=== PATIENT | male | born 1935 | race Caucasian/White ===

== ENCOUNTER 2019-01-23 16:12 | Emergency (ER) | payer OTHER, MEDICARE ==
--- OUTSIDE RECORDS SUMMARY | 2019-01-23 16:14 | XMS REPORT | Clinical Summary ---
:1935 Author Organization [facility] Address [address] [place] [address] Care Team Providers Name Role Phone Katharine Rascon MD Primary Care Provider Allergies Active Allergy Reactions Severity Noted Date Comments No Known Drug Allergies 03/08/2016 Medications Medication Sig Dispensed Refills Start Date End Date Status finasteride Take 5 mg by 0 11/04/2017 Active (PROSCAR) 5 mg mouth daily. tablet levothyroxine TAKE 1 TABLET 0 12/09/2017 Active (SYNTHROID, BY MOUTH ONCE LEVOXYL) 112 mcg DAILY FOR 90 tablet DAYS NIFEdipine CC TAKE 1 TABLET 0 10/24/2017 Active (ADALAT CC) 90 MG BY MOUTH ONCE A 24 hr tablet DAY FOR 90 DAYS pravastatin TAKE 1 TABLET 0 10/22/2017 Active (PRAVACHOL) 40 MG BY MOUTH ONCE A tablet DAY AT BEDTIME FOR 90 DAYS ALPRAZolam (XANAX) Take 0.25 mg by 0 10/16/2017 Active 0.25 MG tablet mouth daily. losartan (COZAAR) TAKE 1 TABLET 0 10/28/2017 Active 50 MG tablet BY MOUTH ONCE A DAY FOR 90 DAYS alfuzosin TAKE 1 TABLET 0 11/25/2017 Active (UROXATRAL) 10 mg BY MOUTH ONCE A 24 hr tablet DAY FOR 90 DAYS albuterol (VENTOLIN INHALE 2 PUFFS 18 Inhaler 0 01/01/2018 Active HFA) 90 BY MOUTH EVERY mcg/actuation 6 HOURS inhaler NEEDED ipratropium-albuter USE 1 VIAL VIA 1080 mL 2 02/28/2018 Active ol (DUO-NEB) NEBULIZER EVERY 0.5-2.5 mg/mL 6 HOURS nebulizer NEEDED tiotropium bromide Inhale. 0 Active (SPIRIVA RESPIMAT) 1.25 mcg/actuation mist budesonide/formoter Inhale. 0 Active ol fumarate (SYMBICORT INHL) ipratropium-albuter USE 1 VIAL VIA 1080 mL 2 03/05/2017 Discontinued ol (DUO-NEB) NEBULIZER EVERY 8 0.5-2.5 mg/mL 6 HOURS nebulizer NEEDED (LVM FOR PT, WE NEED MEDICARE B & DX CODE FROM ) tiotropium bromide Inhale 1.25 mcg 4 g 2 01/01/2018 (SPIRIVA RESPIMAT) daily for 30 8 1.25 mcg/actuation days. mist ipratropium-albuter USE 1 VIAL VIA 1080 mL 2 02/27/2018 Discontinued ol (DUO-NEB) NEBULIZER EVERY 8 0.5-2.5 mg/mL 6 HOURS nebulizer NEEDED sulfamethoxazole-tr Take 1 tablet 14 tablet 0 10/24/2018 imethoprim (BACTRIM by mouth 2 9 DS) 800-160 mg per (two) times a tablet day for 7 days. cephalexin (KEFLEX) Take 1 capsule 28 capsule 0 10/24/2018 500 MG capsule (500 mg total) 9 by mouth 4 (four) times a day for 7 days. Active Problems Problem Noted Date Chronic obstructive pulmonary disease 05/05/2018 Tobacco dependency 05/05/2018 Encounters Date Type Specialty Care Team Description 10/24/2018 Emergency Emergency Medicine Mcclain, Back abscess MD Jesús (Primary Dx) 10/10/2018 Hospital Encounter Radiology Juan Sal osteoporosis; MD Tobi Encounter for long-term (current) use of medications 09/24/2018 Orders Only Pulmonology ProviderBrianna MD 09/19/2018 Transcribe Orders Access Juan Sal Senile osteoporosis ( Primary Dx); MD Tobi Encounter for long-term (current) use of medications 09/17/2018 Office Visit Pulmonology Eliu Lagunas Chronic obstructive pulmonary disease, unspecified COPD type (HCC) (Primary Dx); MD Daren Tobacco dependency 05/05/2018 Office Visit Pulmonology Eliu Lagunas Chronic obstructive pulmonary disease, unspecified COPD type (Primary Dx); MD Daren Tobacco dependency 04/21/2018 Hospital Encounter Radiology Katharine Rascon MD Abdominal aneurysm 04/18/2018 Transcribe Orders Access Katharine Rascon MD Abdominal aneurysm (Primary Dx) 02/28/2018 Orders Only Pulmonology Theresa Moon MA 02/27/2018 Refill Pulmonology Eliu Lagunas MD after 01/22/2018 Immunizations Name Dates Previously Given Next Due Pneumococcal Conjugate 13-Valent 10/17/2012 Tdap 10/24/2018 Family History Medical History Relation Name Comments Heart attack Father Relation Name Status Comments Father Social History Tobacco Use Types Packs/Day Years Used Date Former Smoker Cigarettes 1 50 Quit: 11/15/2015 Smokeless Tobacco: Never Used Sex Assigned at Date Recorded Not on file Job Start Date Occupation Industry Not on file Not on file Not on file Travel History Travel Start Travel End No recent travel history available. Last Filed Vital Signs Vital Sign Reading Time Taken Blood Pressure 167/74 10/24/2018 1:13 PM [facility] Pulse 80 10/24/2018 1:13 PM [facility] Temperature 36.4 C (97.6 F) 10/24/2018 1:13 PM [facility] Respiratory Rate 18 10/24/2018 1:13 PM [facility] Oxygen Saturation 96% 10/24/2018 1:13 PM [facility] Inhaled Oxygen Concentration - - Weight 50.3 kg (111 lb) 09/17/2018 2:23 PM [facility] Height 170.2 cm (5' 7") 10/24/2018 12:44 PM [facility] Body Mass Index - - Plan of Treatment Date Type Specialty Care Team Description 01/30/2019 Office Visit Pulmonology Eliu Lagunas MD [address] [facility] [address] [place] [address] [phone] Health Maintenance Due Date Last Done Comments SHINGLES VACCINES (#1) 1987 PNEUMOCOCCAL POLYSACCHARIDE VACCINE AGE 65 AND OVER 2002 65+ PNEUMOCOCCAL VACCINE (2 of 2 - PPSV23) 10/17/2013 10/17/2012 INFLUENZA VACCINE 04/30/2019 Procedures Procedure Name Priority Date/Time Associated Diagnosis Comments ID DRAIN SKIN Routine 10/24/2018 3:33 PM Results for this ABSCESS COMPLIC [facility] procedure are in the results section. BONE DENSITY Routine 10/10/2018 2:00 PM Senile osteoporosis Results for this [facility] Encounter for procedure are in long-term (current) the results use of medications section. XR CHEST 2 VW Routine 09/10/2018 US ABDOMEN COMPLETE Routine 04/21/2018 9:45 AM Abdominal aneurysm Results for this CDT procedure are in the results section. after 01/22/2018 Results I&D/Aspiration/Amputation (10/24/2018 3:33 PM [facility]) Narrative Performed At Ca Ram NP 10/24/20187:58 PM I&D/Aspiration/Amputation Performed by: Ca Ram NP Authorized by: Jesús Mcclain MD Consent: Consent obtained:Verbal Consent given by:Patient Risks discussed:Bleeding, damage to other organs, infection, incomplete drainage and pain Alternatives discussed:Delayed treatment and no treatment Location: Type:Abscess Location:Trunk Trunk location:Back Pre-procedure details: Skin preparation:Betadine Anesthesia (see MAR for exact dosages): Anesthesia method:Local infiltration Local anesthetic:Lidocaine 1% w/o epi Procedure details: Complexity:Complex Incision types:Stab incision Size (cm):3 Scalpel blade:11 Wound management:Irrigated with saline and probed and deloculated Drainage:Bloody and purulent Drainage amount:Moderate Wound treatment:Wound left open Packing materials:1/2 in iodoform gauze Amount 1/2" iodoform:5 cm Post-procedure details: Patient tolerance of procedure:Tolerated well, no immediate complications Bone Density (10/10/2018 2:00 PM [facility]) Narrative Performed At DEXA SCAN DATE: 10/10/2018 1:34 PM [facility] CLINICAL HISTORY:M81.0 Age-related osteoporosis without current pathological fracture, Z79.899 Other retirement (current) drug therapy, [id number] COMMENT: DEXA bone densitometry was performed on the [employer] unit utilizing the lumbar spine and bilateral hips. AP spine (L1-L4) evaluation: Total BMD:0.957 g/cm2. Mean T score:-2.3 SD Left hip evaluation: Total BMD:0.883 g/cm2. Mean T score:-1.5 SD Left femoral neck BMD:0.832 g/cm2. Mean T score:-1.8 SD. Right hip evaluation: Total BMD:0.830 g/cm2. Mean T score:-1.9 SD Right femoral neck BMD: Right femoral neck BMD0.720 g/cm2. Mean T score:-2.3 SD. IMPRESSION: 1. The patient is considered osteopenic according to the world health organization (WHO) guidelines. 2. Interval increased bone mass density of 4.3% when compared to previous study dated 05/13/2017. 10-year probability of fracture: Major osteoporotic: 11.2%. Hip fracture: 5.1%. Notes: *The world health organization (WHO) has classified the patient's T-score as follows: At or above (-1) as normal (-1) to (-2.5) as low (osteopenia) At or below (-2.5) as abnormally low (osteoporosis, increased fracture risk) For premenopausal women, men under the age 50 years, and children the WHO classification does not apply. In these individuals please assess bone mineral density with Z scores for each skeletal site examined. Z scores above -2.0: Within expected range for age. Z scores lower than -2.0:Low bone density for age. The TBS is derived from the texture of the DEXA image and has been shown to be related to bone microarchitecture and fracture risk. This data provides information independent of BMD value; is used as a complement to the data obtained from the DEXA analysis and the clinical examination. The TBS can assist the healthcare professional in assessment of fracture risk and in monitoring the effect of treatments on patient over time. [facility] [place][id number] Procedure Note Hm Interface, Radiology Results Incoming - 10/10/2018 2:39 PM [facility] DEXA SCAN DATE: 10/10/2018 1:34 PM CLINICAL HISTORY: M81.0 Age-related osteoporosis without current pathological fracture, Z79.899 Other exterminator (current) drug therapy, m81.0 z79.899 COMMENT: DEXA bone densitometry was performed on the [employer] unit utilizing the lumbar spine and bilateral hips. AP spine (L1-L4) evaluation: Total BMD:0.957 g/cm2. Mean T score:-2.3 SD Left hip evaluation: Total BMD:0.883 g/cm2. Mean T score:-1.5 SD Left femoral neck BMD:0.832 g/cm2. Mean T score:-1.8 SD. Right hip evaluation: Total BMD:0.830 g/cm2. Mean T score:-1.9 SD Right femoral neck BMD: Right femoral neck BMD0.720 g/cm2. Mean T score:-2.3 SD. IMPRESSION: 1. The patient is considered osteopenic according to the world health organization (WHO) guidelines. 2. Interval increased bone mass density of 4.3% when compared to previous study dated 05/13/2017. 10-year probability of fracture: Major osteoporotic: 11.2%. Hip fracture: 5.1%. Notes: *The world health organization (WHO) has classified the patient's T-score as follows: At or above (-1) as normal (-1) to (-2.5) as low (osteopenia) At or below (-2.5) as abnormally low (osteoporosis, increased fracture risk) For premenopausal women, men under the age 50 years, and children the WHO classification does not apply. In these individuals please assess bone mineral density with Z scores for each skeletal site examined. Z scores above -2.0: Within expected range for age. Z scores lower than -2.0: Low bone density for age. The TBS is derived from the texture of the DEXA image and has been shown to be related to bone microarchitecture and fracture risk. This data provides information independent of BMD value; is used as a complement to the data obtained from the DEXA analysis and the clinical examination. The TBS can assist the healthcare professional in assessment of fracture risk and in monitoring the effect of treatments on patient over time. [facility] [place]-[id number] Performing Organization Address City/State/Zipcode Phone Number [facility] [address] [place] [address] XR Chest 2 Vw (09/10/2018) Narrative Performed At US Abdomen Complete (04/21/2018 9:45 AM CDT) Narrative Performed At EXAM: US ABDOMEN COMPLETE [facility] CLINICAL DATA:I71.4 Abdominal aortic aneurysmwithout rupture, HX OF NICOTENE TECHNIQUE: Sonographic evaluation of the abdomen was performed. COMPARISON: NONE. IMPRESSION: 1.The liver is normal. There are no liver masses or intrahepatic biliary ductal dilatation. Small polyp within the gallbladder. Gallbladder otherwise unremarkable. There are no gallstones. The common bile duct is normal in caliber and measures 3 mm. 2.The pancreatic head and proximal body are unremarkable. The tail is obscured by gas. The spleen is normal in size and measures 7.4 cm in long axis. Spleen appears hyperechoic, which may indicate splenic infiltration. 3.No ascites or pleural effusion are present. The visualized portions of the abdominal aorta and inferior vena cava are unremarkable. The main portal vein is patent and demonstrates normal directional hepatopedal flow. 4.Both kidneys are normal in size, with a long axis of the right and left kidneys measuring 9.9 cm and 9.6 cm, respectively. 2.8 cm greatest dimension cyst at the interpolar region of the right kidney demonstrates thickened internal septations and/or calcifications. 1.2 cm greatest dimension cyst within the inferior left kidney demonstrates thickened septations. No calculi, or hydronephrosis. Given complexity of bilateral renal cysts, recommend short-term interval follow-up with renal focus CT. 5.Aneurysmal dilatation of the infrarenal abdominal aorta measuring up to 2.8 cm in greatest dimension. [facility]-[id number] Procedure Note Hm Interface, Radiology Results Incoming - 04/21/2018 1:41 PM CDT EXAM: US ABDOMEN COMPLETE CLINICAL DATA: I71.4 Abdominal aortic aneurysm without rupture, HX OF NICOTENE TECHNIQUE: Sonographic evaluation of the abdomen was performed. COMPARISON: NONE. IMPRESSION: 1. The liver is normal. There are no liver masses or intrahepatic biliary ductal dilatation. Small polyp within the gallbladder. Gallbladder otherwise unremarkable. There are no gallstones. The common bile duct is normal in caliber and measures 3 mm. 2. The pancreatic head and proximal body are unremarkable. The tail is obscured by gas. The spleen is normal in size and measures 7.4 cm in long axis. Spleen appears hyperechoic, which may indicate splenic infiltration. 3. No ascites or pleural effusion are present. The visualized portions of the abdominal aorta and inferior vena cava are unremarkable. The main portal vein is patent and demonstrates normal directional hepatopedal flow. 4. Both kidneys are normal in size, with a long axis of the right and left kidneys measuring 9.9 cm and 9.6 cm, respectively. 2.8 cm greatest dimension cyst at the interpolar region of the right kidney demonstrates thickened internal septations and/or calcifications. 1.2 cm greatest dimension cyst within the inferior left kidney demonstrates thickened septations. No calculi, or hydronephrosis. Given complexity of bilateral renal cysts, recommend short-term interval follow-up with renal focus CT. 5. Aneurysmal dilatation of the infrarenal abdominal aorta measuring up to 2.8 cm in greatest dimension. [facility] [place]-[id number] Performing Organization Address City/State/Zipcode Phone Number [facility] [address] [place] [address] after 01/22/2018 Insurance Payer Benefit Plan / Group Subscriber ID Type Phone Address MEDICARE MEDICARE PART A AND B xxxxxxxxxxx Medicare [place], [place] AARP AARP SUPPLEMENT xxxxxxxxxx Commercial Advance Directives Patient has advance care planning documents on file. For more information, please contact:[id number] [place] [address]
[2019-01-23] MEDS ORDERED: METHYLPREDNISOLONE 125 MG INJ ONE (17:02)
[2019-01-23] MEDS ORDERED: IPRATROPIUM BROM 0.5MG/2.5ML ONE (17:03)
[2019-01-23] MEDS ORDERED: ALBUTEROL 2.5 MG/3 ML NEB SOL ONE (17:03)
[2019-01-23 17:45] LABS: Absolute Lymphocytes (CBC) 0.2 K/uL (0.7-4.9); Absolute Monocytes 0.3 K/uL (0.1-1.3); Absolute Neutrophil 13.5 K/uL (1.8-8.0); Basophils % 0.2 % (0-1.3); Hematocrit 41.6 % (39.6-49.0); Lymphocytes % 1.4 % (15.3-44.8); MPV 8.4 fL (7.6-11.3); Monocytes % 2.4 % (3.3-12.3); Protime INR 0.98; RBC Red Blood Cell Count 4.54 M/uL (4.33-5.43)
--- NOTE | 2019-01-23 17:47 | RAD REPORT ---
EXAM DESCRIPTION: Janina Pa And Lat (2 Views)01/23/2019 5:25 pm CLINICAL HISTORY: Cough COMPARISON: None FINDINGS: The lungs are moderately hyperaerated. 8 millimeter nodular opacity overlies the mid right lung. Left lung appears clear of acute infiltrate Old rib fractures The heart is normal size IMPRESSION: COPD 8 millimeter nodular opacity overlies the mid right lung. This may represent a nipple shadow, pulmona ry nodule or confluence of ribs and vessels. It is recommended that the patient have followup frontal and oblique views of the chest with a right nipple marker in 3 months for re-evaluation
[2019-01-23 18:05] LABS: ALT/SGPT 21 U/L (12-78); AST/SGOT 15 U/L (15-37); Albumin 3.3 g/dL (3.4-5.0); Alkaline Phosphatase 66 U/L (45-117); BUN Blood Urea Nitrogen 29 mg/dL (7-18); Bicarbonate 27 mmol/L (21-32); Bilirubin Direct 0.1 mg/dL (0-0.2); Bilirubin Total 0.5 mg/dL (0.2-1.0); Glucose Level 124 mg/dL (74-106); Magnesium 2.5 mg/dL (1.8-2.4); NT PRO-BNP 934 pg/mL (<450); Potassium 4.1 mmol/L (3.5-5.1); Protein, Total 7.4 g/dL (6.4-8.2); Sodium Level 130 mmol/L (136-145); Troponin (Emerg Dept Use Only) < 0.02 ng/mL (0.0-0.045)
[2019-01-23 18:11] LABS: Blood Morphology Comment NOT SEEN (NOT SEEN); Platelet Estimate ADEQ; Urine White Blood Cell Casts OK
--- NOTE | 2019-01-23 19:03 | ER ---
Nurse's Notes [facility] Name: Fausto Schaefer Age: 83 yrs Sex: Male : 1935 Arrival Date: 01/23/2019 Time: 16:14 Bed 6 Private MD: Diagnosis: Chronic obstructive pulmonary disease with acute lower respiratory infection Presentation: 01/23 16:17 Presenting complaint: Patient states: i have COPD, i have cough and chest congestion hj and im coughing out green stuff for week now; denies fever and chills; reports O2 sat at 92% at home RA;. Transition of care: patient was not received from another setting of care. Onset of symptoms was January 23, 2019. Risk Assessment: Do you want to hurt yourself or someone else? Patient reports no desire to harm self or others. Initial Sepsis Screen: Does the patient meet any 2 criteria? No. Patient's initial sepsis screen is negative. Does the patient have a suspected source of infection? No. Patient's initial sepsis screen is negative. Care prior to arrival: None. 16:17 Method Of Arrival: Ambulatory 16:17 Acuity: VITALY 2 Triage Assessment: 19:20 Respiratory: Onset: The symptoms/episode began/occurred suddenly, the patient has ao moderate shortness of breath. Historical: - Allergies: 16:19 No Known Allergies; hj - PMHx: 16:19 COPD; hj - PSHx: 16:19 None; hj - Immunization history:: Adult Immunizations up to date. - Social history:: Smoking status: Patient uses tobacco products, smokes one pack cigarettes per day. - Ebola Screening: : Patient negative for fever greater than or equal to 101.5 degrees Fahrenheit, and additional compatible Ebola Virus Disease symptoms Patient denies exposure to infectious person Patient denies travel to an Ebola-affected area in the 21 days before illness onset. Screenin:00 Abuse screen: Denies threats or abuse. Denies injuries from another. Nutritional ss screening: No deficits noted. Tuberculosis screening: No symptoms or risk factors identified. Never had TB. Fall Risk No fall in past 12 months (0 pts). Secondary diagnosis (15 points) IV access (20 points). Ambulatory Aid- None/Bed Rest/Nurse Assist (0 pts). Gait- Normal/Bed Rest/Wheelchair (0 pts) Mental Status- Oriented to own ability (0 pts). Assessment: 17:00 General: Appears in no apparent distress. comfortable, Behavior is calm, cooperative, ss Reports feeling ill for x 1 week. Denies fever, chills. Pain: Denies pain. Neuro: Level of Consciousness is awake, alert, obeys commands, Oriented to person, place, time, situation. Cardiovascular: Capillary refill < 3 seconds is brisk in bilateral fingers Rhythm is regular. Respiratory: Airway is patent Respiratory effort is even, unlabored, Respiratory pattern is regular, symmetrical, Breath sounds are diminished bilaterally. Respiratory: Reports cough that is productive, hacking, persistent since x 1 week. Pt reports galole family has had a cough, but believes his is worse due to his history of COPD Denies pain with respiration, pain with cough, pain with movement. GI: Patient currently denies abdominal pain, diarrhea, nausea, vomiting. : Denies burning with urination, urinary frequency. EENT: Nares are clear Oral mucosa is moist. Denies blurred vision nasal congestion, nasal discharge, difficulty swallowing. Derm: Skin is intact, with poor turgor Skin is dry, Skin is pink, warm \T\ dry. normal. Musculoskeletal: Circulation, motion, and sensation intact. Range of motion: intact in all extremities, Swelling absent. 18:02 Reassessment: Patient appears in no apparent distress at this time. Patient and/or ss family updated on plan of care and expected duration. Pain level reassessed. Patient is alert, oriented x 3, equal unlabored respirations, skin warm/dry/pink. Patient denies pain at this time. Patient states feeling better. Patient states symptoms have improved. 19:00 Reassessment: Patient appears in no apparent distress at this time. Patient and/or ss family updated on plan of care and expected duration. Pain level reassessed. Patient is alert, oriented x 3, equal unlabored respirations, skin warm/dry/pink. Patient denies pain at this time. Patient states feeling better. Reassessment: awaiting disposition. LOU Colindres at bedside discussing POC with patient and family. Respiratory: Respiratory effort is even, unlabored. 19:18 Reassessment: Patient ambulated with no oxigen. Patient was DC home and agree to follow ao up with PCP. Patient agree to stat quitting smoking to improve oxygenation. Vital Signs: 16:19 BP 179 / 85; Pulse 87; Resp 18; Temp 97.3(TE); Pulse Ox 92% on R/A; Weight 51.71 kg; hj Height 5 ft. 7 in. (170.18 cm); Pain 0/10; 17:04 BP 171 / 77; Pulse 63; Resp 20; Pulse Ox 99% on Nebulizer Mask; Pain 0/10; ss 18:57 BP 159 / 72; Pulse 79; Resp 17; Pulse Ox 95% on 2 lpm NC; Pain 0/10; ss 16:19 Body Mass Index 17.85 (51.71 kg, 170.18 cm) hj ED Course: 16:14 Patient arrived in ED. rg4 16:18 Triage completed. hj 16:21 Arm band placed on right wrist. hj 16:22 Magdiel Leija PA is PHCP. cp 16:22 Ramakrishna Bo MD is Attending Physician. cp 16:22 Marisa Castle RN is Primary Nurse. ss 16:45 EKG done, by records technician. reviewed by Magdiel BLAKE. sm3 17:00 Patient has correct armband on for positive identification. Placed in gown. Bed in low ss position. Call light in reach. Side rails up X 1. Adult w/ patient. traffic monitor specialist on. Pulse ox on. NIBP on. 17:00 Inserted saline lock: 20 gauge in right forearm, using aseptic technique. ,using ss aseptic technique. insertion by Chad Izquierdo technician telecommunication systems Blood collected. Oxygen administration via nasal cannula \T\ 2L/min. 17:18 Patient moved to radiology via wheelchair. jr1 17:26 XRAY Chest Pa And Lat (2 Views) In Process Unspecified. EDMS 19:18 No provider procedures requiring assistance completed. IV discontinued, intact, ao bleeding controlled, No redness/swelling at site. Pressure dressing applied. Administered Medications: 17:02 Drug: SOLU-Medrol 80 mg Route: IVP; Site: right forearm; ss 18:55 Follow up: Response: No adverse reaction; Marked relief of symptoms ss 17:03 Drug: Albuterol - atroVENT (3:1) (2.5 mg - 0.5 mg) 3 ml Route: Nebulizer; ss 18:56 Follow up: Response: No adverse reaction; Marked relief of symptoms; Wheezing diminishedss Outcome: 19:02 Discharge ordered by . cp 19:19 Discharged to home ambulatory. ao 19:19 Condition: stable 19:19 Discharge instructions given to patient, Instructed on discharge instructions, follow up and referral plans. Demonstrated understanding of instructions, follow-up care, medications, Prescriptions given X 2. 19:20 Patient left the ED. ao Signatures: Dispatcher [employer] EDMS Cher [place] jr1 Marisa Castle RN RN Carlton Lopez RN RN hj Page, Corey, PA PA cp Ortiz, Alex RN RN Kiara Lyons rg4 Eloise Marx 3
--- NOTE | 2019-01-23 19:03 | EDPHYS ---
Physician Documentation [facility] Name: Fausto Schaefer Age: 83 yrs Sex: Male : 1935 Arrival Date: 01/23/2019 Time: 16:14 Bed 6 Private MD: ED Physician Ramakrishna oB HPI: 01/23 16:50 This 83 yrs old Male presents to ER via Ambulatory with complaints of Cough, cp Breathing Difficulty. 16:50 The patient or guardian reports cough, that is intermittent, with productive sputum, cp that is yellow. Onset: The symptoms/episode began/occurred 1 week(s) ago. Severity of symptoms: in the emergency department the symptoms are unchanged, despite home interventions. Associated signs and symptoms: Pertinent negatives: chest pain, fever, sore throat, vomiting. 16:50 Patient reports increased sputum production. cp Historical: - Allergies: 16:19 No Known Allergies; hj - PMHx: 16:19 COPD; hj - PSHx: 16:19 None; hj - Immunization history:: Adult Immunizations up to date. - Social history:: Smoking status: Patient uses tobacco products, smokes one pack cigarettes per day. - Ebola Screening: : Patient negative for fever greater than or equal to 101.5 degrees Fahrenheit, and additional compatible Ebola Virus Disease symptoms Patient denies exposure to infectious person Patient denies travel to an Ebola-affected area in the 21 days before illness onset. ROS: 17:00 Constitutional: Negative for body aches, chills, fever, poor PO intake. cp 17:00 Eyes: Negative for injury, pain, redness, and discharge. cp 17:00 ENT: Negative for drainage from ear(s), ear pain, sore throat, difficulty swallowing, cp difficulty handling secretions. 17:00 Cardiovascular: Negative for chest pain, edema. 17:00 Respiratory: Positive for cough, with yellow sputum, shortness of breath, at rest. Negative for hemoptysis. 17:00 Abdomen/GI: Negative for abdominal pain, vomiting, diarrhea, constipation. 17:00 Back: Negative for pain at rest, pain with movement. 17:00 Skin: Negative for rash. 17:00 Neuro: Negative for altered mental status, dizziness, headache, weakness. 17:00 All other systems are negative. Exam: 16:45 ECG was reviewed by the Attending Physician. cp 17:05 Constitutional: The patient appears in no acute distress, alert, awake, cp non-diaphoretic, non-toxic, well developed, well nourished. 17:05 Head/Face: Normocephalic, atraumatic. cp 17:05 Eyes: Pupils equal round and reactive to light, extra-ocular motions intact. Lids and cp lashes normal. Conjunctiva and sclera are non-icteric and not injected. Cornea within normal limits. Periorbital areas with no swelling, redness, or edema. 17:05 ENT: External ear(s): are unremarkable, Ear canal(s): are normal, clear, TM's: dullness, bilaterally, Nose: is normal, Mouth: Lips: moist, Oral mucosa: moist, Posterior pharynx: Airway: no evidence of obstruction, patent, Uvula: midline, swelling, is not appreciated, erythema, that is moderate, exudate, is not appreciated. 17:05 Neck: ROM/movement: is normal, is supple, without pain, no range of motions limitations, no meningismus, no nuchal rigidity. 17:05 Chest/axilla: Inspection: normal, Palpation: is normal, no crepitus, no tenderness. 17:05 Cardiovascular: Rate: normal, Rhythm: regular, Edema: is not appreciated, JVD: is not cp appreciated. 17:05 Respiratory: the patient does not display signs of respiratory distress, Respirations: labored breathing, is not present, intercostal retractions, are absent, shallow respirations, are not present, Breath sounds: decreased breath sounds, that are moderate, throughout, stridor, is not appreciated. 17:05 Abdomen/GI: Inspection: abdomen appears normal, Palpation: abdomen is soft and non-tender, in all quadrants. 17:05 Back: pain, is absent, ROM is normal. 17:05 Skin: no rash present. Vital Signs: 16:19 BP 179 / 85; Pulse 87; Resp 18; Temp 97.3(TE); Pulse Ox 92% on R/A; Weight 51.71 kg; hj Height 5 ft. 7 in. (170.18 cm); Pain 0/10; 17:04 BP 171 / 77; Pulse 63; Resp 20; Pulse Ox 99% on Nebulizer Mask; Pain 0/10; ss 18:57 BP 159 / 72; Pulse 79; Resp 17; Pulse Ox 95% on 2 lpm NC; Pain 0/10; ss 16:19 Body Mass Index 17.85 (51.71 kg, 170.18 cm) hj MDM: 16:22 Patient medically screened. cp 17:00 Differential Diagnosis: Bronchitis Viral Syndrome Pneumonia Other respiratory failure, cp CHF, acute IL. 19:01 Data reviewed: vital signs, nurses notes, lab test result(s), EKG, radiologic studies, cp plain films. 19:01 Test interpretation: by ED physician or midlevel provider: ECG. cp 19:01 Counseling: I had a detailed discussion with the patient and/or guardian regarding: the cp historical points, exam findings, and any diagnostic results supporting the discharge/admit diagnosis, lab results, radiology results, the need for outpatient follow up, an personal care worker, to return to the emergency department if symptoms worsen or persist or if there are any questions or concerns that arise at home. 19:01 Response to treatment: the patient's symptoms have markedly improved after treatment, and as a result, I will discharge patient. 01/23 16:46 Order name: Basic Metabolic Panel; Complete Time: 18:32 01/23 18:33 Interpretation: NA 130; CL 95; GLUC 124; BUN 29; CRE 1.40; GFR 49; CA 8.0. 01/23 16:46 Order name: CBC with Diff; Complete Time: 18:32 01/23 18:32 Interpretation: Normal except: WBC 14.0; GOLD% 96.0; LYM% 1.4; MN% 2.4; NEUT A 13.5. 01/23 16:46 Order name: LFT's; Complete Time: 18:32 01/23 18:54 Interpretation: Normal except: ALB 3.3; GLOB 4.1; A/G 0.8. 01/23 16:46 Order name: Magnesium; Complete Time: 18:32 01/23 16:46 Order name: NT PRO-BNP; Complete Time: 18:32 01/23 18:33 Interpretation: Abnormal: NT PRO-BNP 934. 01/23 16:46 Order name: PT-INR; Complete Time: 18:32 01/23 16:46 Order name: Troponin (emerg Dept Use Only); Complete Time: 18:32 01/23 16:46 Order name: XRAY Chest Pa And Lat (2 Views); Complete Time: 18:32 cp 01/23 16:46 Order name: Procalcitonin; Complete Time: 18:53 cp 01/23 18:54 Interpretation: Reviewed. cp 01/23 16:46 Order name: Lactate; Complete Time: 18:32 cp 01/23 16:46 Order name: Blood Culture Adult (2) cp 01/23 17:51 Order name: CBC Smear Scan; Complete Time: 18:32 EDMS 01/23 16:46 Order name: EKG; Complete Time: 16:47 cp 01/23 16:46 Order name: Cardiac monitoring; Complete Time: 16:48 cp 01/23 16:46 Order name: EKG - Nurse/Tech; Complete Time: 16:48 cp 01/23 16:46 Order name: IV Saline Lock; Complete Time: 17:03 cp 01/23 16:46 Order name: Labs collected and sent; Complete Time: 17:03 cp 01/23 16:46 Order name: O2 Per Protocol; Complete Time: 16:48 cp 01/23 16:46 Order name: O2 Sat Monitoring; Complete Time: 16:48 cp EC:45 Rate is 65 beats/min. Rhythm is regular. VT interval is normal. QRS interval is cp prolonged at 102 msec. QT interval is normal. T waves are Inverted in lead aVL. Interpreted by me. Reviewed by me. Administered Medications: 17:02 Drug: SOLU-Medrol 80 mg Route: IVP; Site: right forearm; ss 18:55 Follow up: Response: No adverse reaction; Marked relief of symptoms ss 17:03 Drug: Albuterol - atroVENT (3:1) (2.5 mg - 0.5 mg) 3 ml Route: Nebulizer; ss 18:56 Follow up: Response: No adverse reaction; Marked relief of symptoms; Wheezing diminishedss Disposition: 01/23/19 19:02 Discharged to Home. Impression: Chronic obstructive pulmonary disease with acute lower respiratory infection. - Condition is Stable. - Discharge Instructions: Acute Bronchitis, Adult, Chronic Obstructive Pulmonary Disease, Steps to Quit Smoking, Smoking Hazards. - Prescriptions for Augmentin 875- 125 mg Oral Tablet - take 1 tablet by ORAL route every 12 hours for 10 days; 20 tablet. Prednisone 20 mg Oral Tablet - take 2 tablet by ORAL route once daily for 5 days; 10 tablet. - Medication Reconciliation Form, Thank You Letter, Antibiotic Education, Prescription Opioid Use form. - Follow up: Private Physician; When: 2 - 3 days; Reason: Recheck today's complaints. - Problem is new. - Symptoms have improved. Addendum: 01/28/2019 14:19 Co-signature as Attending Physician, Ramakrishna Bo MD. m a2 Signatures: Dispatcher [employer] EDMarisa Ziegler RN RN Carlton Lopez RN RN hj Magdiel Leija PA PA cp Sebastian Lopez RN RN Ramakrishna Penn MD MD ma2 Corrections: (The following items were deleted from the chart) 01/23 18:32 18:32 Normal except: WBC 14.0. cp cp 18:33 18:32 NA 130; CL 95; GLUC 124; BUN 29; CRE 1.40; GFR 49. cp cp 19:20 19:02 01/23/2019 19:02 Discharged to Home. Impression: Chronic obstructive pulmonary ao disease with acute lower respiratory infection. Condition is Stable. Forms are Medication Reconciliation Form, Thank You Letter, Antibiotic Education, Prescription Opioid Use. Follow up: Private Physician; When: 2 - 3 days; Reason: Recheck today's complaints. Problem is new. Symptoms have improved. cp
--- NOTE | 2019-01-24 10:30 | EKG ---
Test Date: 2019-01-23 Test Time: 16:38:44 Inside Sales Administrator: KORIN MEASUREMENT RESULTS: Intervals: Rate: 65 AR: 112 QRSD: 102 QT: 408 QTc: 424 [place]: P: 61 AR: 112 QRS: 87 T: 111 INTERPRETIVE STATEMENTS: Normal sinus rhythm Nonspecific ST and T wave abnormality Abnormal ECG No previous ECG available for comparison Electronically Signed On 01-24-19 10:28:23 CDT by Gianfranco Hurst
== END 2019-01-23 19:20 | disposition home or self-care (01) ==
LOC: ER 16:12
DX: J44.0 Chronic obstructive pulmonary disease with (acute) lower respiratory infection (principal)
CPT/HCPCS: 36415; 71046; 80048; 80076; 83605; 83735; 83880; 84145; 84484; 85025; 85610; 87040; 93005; 94640; 96374; 99285; J2930

== ENCOUNTER 2019-01-26 09:53 | Inpatient (IN) | payer OTHER, MEDICARE ==
--- OUTSIDE RECORDS SUMMARY | 2019-01-26 09:56 | XMS REPORT | Clinical Summary ---
:1935 Author Organization [facility] Address [address] [place] [address] Care Team Providers Name Role Phone Katharine [...] 02/27/2018 Refill Pulmonology Eliu Lagunas MD after 01/25/2018 Immunizations Name Dates Previously Given Next Due [...] Taken Blood Pressure 167/74 10/24/2018 1:13 PM LOFT PATTERNMAKER Pulse 80 10/24/2018 1:13 PM LOFT PATTERNMAKER Temperature 36.4 C (97.6 F) 10/24/2018 1:13 PM LOFT PATTERNMAKER Respiratory Rate 18 10/24/2018 1:13 PM LOFT PATTERNMAKER Oxygen Saturation 96% 10/24/2018 1:13 PM LOFT PATTERNMAKER Inhaled Oxygen Concentration - - Weight 50.3 kg (111 lb) 09/17/2018 2:23 PM LOFT PATTERNMAKER Height 170.2 cm (5' 7") 10/24/2018 12:44 PM LOFT PATTERNMAKER Body Mass Index - - Plan of Treatment Date Type Specialty Care Team Description 01/30/2019 Office Visit Pulmonology Eliu Lagunas MD [address] [facility] [address] [place] [address] [id number] Health Maintenance Due Date Last Done Comments SHINGLES VACCINES (#1) 1987 PNEUMOCOCCAL POLYSACCHARIDE VACCINE AGE 65 AND OVER 2002 65+ PNEUMOCOCCAL VACCINE (2 of 2 - PPSV23) 10/17/2013 10/17/2012 INFLUENZA VACCINE 04/30/2019 Procedures Procedure Name Priority Date/Time Associated Diagnosis Comments MS DRAIN SKIN Routine 10/24/2018 3:33 PM Results for this ABSCESS COMPLIC LOFT PATTERNMAKER procedure are in the results section. BONE DENSITY Routine 10/10/2018 2:00 PM Senile osteoporosis Results for this LOFT PATTERNMAKER Encounter for procedure are in long-term (current) the results use of medications section. XR CHEST 2 VW Routine 09/10/2018 US ABDOMEN COMPLETE Routine 04/21/2018 9:45 AM Abdominal aneurysm Results for this CDT procedure are in the results section. after 01/25/2018 Results I&D/Aspiration/Amputation (10/24/2018 3:33 PM LOFT PATTERNMAKER) Narrative Performed At Ca Ram NP 10/24/20187:58 [...] immediate complications Bone Density (10/10/2018 2:00 PM LOFT PATTERNMAKER) Narrative Performed At DEXA SCAN DATE: 10/10/2018 1:34 PM [facility] CLINICAL HISTORY:M81.0 Age-related osteoporosis without current pathological fracture, Z79.899 Other senior care (current) drug therapy, [id number] COMMENT: DEXA bone densitometry was performed on the P[employer] Discovery unit utilizing the lumbar spine and [...] effect of treatments on patient over time. [id number] Procedure Note Hm Interface, Radiology Results Incoming - 10/10/2018 2:39 PM LOFT PATTERNMAKER DEXA SCAN DATE: 10/10/2018 1:34 PM CLINICAL HISTORY: M81.0 Age-related osteoporosis without current pathological fracture, Z79.899 Other face burler (current) drug therapy, m81.0 z79.899 COMMENT: DEXA bone densitometry was performed on the Delphi unit utilizing the lumbar spine and bilateral [...] effect of treatments on patient over time. [id number] Performing Organization Address City/State/Zipcode Phone Number [facility] [phone] [place] [address] XR Chest 2 Vw (09/10/2018) Narrative Performed [...] up to 2.8 cm in greatest dimension. [facility]-[id number] Procedure Note Hm Interface, Radiology Results Incoming [...] up to 2.8 cm in greatest dimension. [id number] Performing Organization Address City/State/Zipcode Phone Number [facility] [address] [place] [address] after 01/25/2018 Insurance Payer Benefit Plan / Group Subscriber ID Type Phone Address MEDICARE MEDICARE PART A AND B xxxxxxxxxxx [place], [place] AARP AARP SUPPLEMENT xxxxxxxxxx Commercial Advance Directives Patient has advance care planning documents on file. For more information, please contact:[facility] [id number] [place] [address]
[2019-01-26] MEDS ORDERED: LEVALBUTEROL 1.25 MG/3 ML NEB ONE ×2 (11:01)
[2019-01-26 11:27] LABS: Absolute Lymphocytes (CBC) 0.9 K/uL (0.7-4.9); Absolute Monocytes 1.3 K/uL (0.1-1.3); Absolute Neutrophil 13.4 K/uL (1.8-8.0); Basophils % 0.2 % (0-1.3); Eosinophils % 0.2 % (0-4.4); Hematocrit 42.7 % (39.6-49.0); Lymphocytes % 5.7 % (15.3-44.8); MPV 8.5 fL (7.6-11.3); Monocytes % 8.3 % (3.3-12.3); RBC Red Blood Cell Count 4.66 M/uL (4.33-5.43)
[2019-01-26 11:42] LABS: BUN Blood Urea Nitrogen 24 mg/dL (7-18); Bicarbonate 31 mmol/L (21-32); Glucose Level 89 mg/dL (74-106); NT PRO-BNP 1292 pg/mL (<450); Potassium 3.5 mmol/L (3.5-5.1); Sodium Level 137 mmol/L (136-145); Troponin (Emerg Dept Use Only) < 0.02 ng/mL (0.0-0.045)
[2019-01-26] MEDS ORDERED: METHYLPREDNISOLONE 125 MG INJ ONE (11:44)
--- NOTE | 2019-01-26 11:54 | EKG ---
Test Date: 2019-01-26 Test Time: 10:55:13 Map And Chart Mounter: ROSA MEASUREMENT RESULTS: Intervals: Rate: 68 MA: 118 QRSD: 100 QT: 360 QTc: 382 [place]: P: 76 MA: 118 QRS: 79 T: 106 INTERPRETIVE STATEMENTS: Sinus rhythm with marked sinus arrhythmia T wave abnormality, consider lateral ischemia Abnormal ECG Compared to ECG 01/23/2019 16:38:44 T-wave abnormality now present Possible ischemia now present ST (T wave) deviation no longer present Electronically Signed On 01-26-19 11:53:23 CDT by Hal Marcano
[2019-01-26 12:05] LABS: Blood Morphology Comment NOT SEEN (NOT SEEN); Platelet Estimate ADEQ; Urine White Blood Cell Casts OK
--- NOTE | 2019-01-26 12:13 | RAD REPORT ---
EXAM DESCRIPTION: RAD - Chest Single View - 01/26/2019 11:41 am CLINICAL HISTORY: Cough;COPD Chest pain. COMPARISON: Chest Pa And Lat (2 Views) dated 01/23/2019 FINDINGS: Portable technique limits examination quality. The lungs are emphysematous but grossly clear. The heart is normal in size. No displaced fractures. IMPRESSION: Prominent COPD.
--- NOTE | 2019-01-26 12:22 | EDPHYS ---
Physician Documentation [facility] Name: Fausto Schaefer Age: 83 yrs Sex: Male : 1935 Arrival Date: 01/26/2019 Time: 09:54 Bed 26 Private MD: ED Physician Solis Caruso HPI: 01/26 10:37 This 83 yrs old Male presents to ER via Ambulatory with complaints of COPD rn Exacerbation. 10:37 The patient has shortness of breath at rest, with light activity. Onset: The rn symptoms/episode began/occurred 1 week(s) ago. 11:07 Duration: The symptoms are continuous. The patient's shortness of breath is aggravated rn by exertion, light activity, talking, walking. Associated signs and symptoms: Pertinent positives: non-productive cough, Pertinent negatives: fever, hemoptysis, loss of consciousness. Severity of symptoms: At their worst the symptoms were moderate in the emergency department the symptoms are unchanged. The patient has experienced similar episodes in the past. Reports sick for 1 week now, family had similar symptoms, all got better, has COPD, + sob with exertion and at rest, nebs not helping much, non-productive cough, + still smokes. Seen here 3 days ago, given prednisone and abx, not better, feels worse. . Historical: - Allergies: 10:21 No Known Allergies; aa5 - PMHx: 10:21 COPD; aa5 - PSHx: 10:21 None; aa5 - Immunization history:: Adult Immunizations up to date. - Social history:: Smoking status: Patient uses tobacco products, smokes one pack cigarettes per day. - Ebola Screening: : No symptoms or risks identified at this time. - Family history:: not pertinent. - Hospitalizations: : No recent hospitalization is reported. The patient was recently seen at [facility]. ROS: 11:07 Constitutional: Negative for fever, chills, and weight loss, Eyes: Negative for injury, rn pain, redness, and discharge, Neck: Negative for injury, pain, and swelling, Cardiovascular: Negative for chest pain, palpitations, and edema, Respiratory: + sob and cough Abdomen/GI: Negative for abdominal pain, nausea, vomiting, diarrhea, and constipation, MS/Extremity: Negative for injury and deformity, Skin: Negative for injury, rash, and discoloration, Neuro: + generalized weakness Exam: 11:07 Constitutional: Thin male, mild tachypnea Head/Face: Normocephalic, atraumatic. Eyes: rn Pupils equal round and reactive to light, extra-ocular motions intact. Lids and lashes normal. Conjunctiva and sclera are non-icteric and not injected. Cornea within normal limits. Periorbital areas with no swelling, redness, or edema. ENT: MMM, no oral swelling Cardiovascular: Regular rate and rhythm, No pulse deficits. Respiratory: + mild tachypnea, no retractions, + diffuse inspiratory and expiratory wheezing Abdomen/GI: soft, non-tender MS/ Extremity: Pulses equal, no cyanosis. Neurovascular intact. Full, normal range of motion. Equal circumference. Neuro: Awake and alert, GCS 15, oriented to person, place, time, and situation. Cranial nerves II-XII grossly intact. Motor strength 5/5 in all extremities. Sensory grossly intact. Vital Signs: 10:18 BP 162 / 71; Pulse 104; Resp 24 S; Temp 98.8(TE); Pulse Ox 86% on R/A; aa5 10:21 Pulse Ox 92% on 3 lpm NC; aa5 11:00 BP 155 / 62; Pulse 88; Resp 24; Pulse Ox 95% on 3 lpm NC; aj1 11:30 Pulse 76; Resp 20; Pulse Ox 96% on 3 lpm NC; aj1 12:00 BP 147 / 56; Pulse 75; Resp 18; Pulse Ox 94% on 3 lpm NC; aj1 12:30 BP 152 / 53; Pulse 89; Resp 20; Pulse Ox 96% on 3 lpm NC; aj1 13:00 BP 153 / 67; Pulse 75; Resp 20; Pulse Ox 96% on 3 lpm NC; aj1 13:27 BP 143 / 61; Pulse 70; Resp 20; Pulse Ox 95% on 3 lpm NC; aj1 14:28 BP 154 / 74; Pulse 68; Resp 22; Pulse Ox 94% on 3 lpm NC; aj1 15:04 BP 147 / 64; Pulse 72; Resp 20; Pulse Ox 96% on 3 lpm NC; aj1 15:30 BP 132 / 54; Pulse 79; Resp 14; Pulse Ox 97% on 3 lpm NC; rv MDM: 10:25 Patient medically screened. rn 12:19 Differential diagnosis: Chronic Obstructive Pulmonary Disease pneumonia, Pneumothorax rn pulmonary edema. Data reviewed: vital signs, nurses notes, lab test result(s), radiologic studies, plain films, and as a result, I will admit patient. Counseling: I had a detailed discussion with the patient and/or guardian regarding: the historical points, exam findings, and any diagnostic results supporting the discharge/admit diagnosis, lab results, radiology results, the need for further work-up and treatment in the hospital. ED course: Pt improved but still requiring oxygen, no oxygen set up at home, will admit for viral respiratory infection and COPD exacerbation. . 01/26 10:37 Order name: Blood Culture Adult (2) rn 01/26 10:37 Order name: BMP; Complete Time: 12: rn 01/26 10:37 Order name: CBC with Diff; Complete Time: 12: rn 01/26 10:37 Order name: NT PRO-BNP; Complete Time: 12: rn 01/26 10:37 Order name: Troponin (emerg Dept Use Only); Complete Time: 12: rn 01/26 10:37 Order name: Procalcitonin; Complete Time: 12: rn 01/26 10:37 Order name: XRAY CXR (1 view); Complete Time: 12:18 rn 01/26 10:37 Order name: EKG; Complete Time: 10:37 rn 01/26 10:37 Order name: Cardiac monitoring; Complete Time: 11: rn 01/26 10:37 Order name: EKG - Nurse/Tech; Complete Time: 11: rn 01/26 10:37 Order name: IV Saline Lock; Complete Time: : rn 01/26 11:28 Order name: CBC Smear Scan; Complete Time: 12:09 EDCA 01/26 10:37 Order name: Labs collected and sent; Complete Time: 11: rn 01/26 10:37 Order name: O2 Per Protocol; Complete Time: : rn 01/26 10:37 Order name: O2 Sat Monitoring; Complete Time: 11:18 rn Administered Medications: 11:17 Drug: Xopenex (3) 1.25 mg Route: Inhalation; aj1 11:30 Follow up: Response: No adverse reaction aj1 11:40 Drug: SOLU-Medrol 125 mg Route: IVP; Site: right forearm; aj1 12:30 Follow up: Response: No adverse reaction aj1 Disposition: 01/26/19 12:21 Hospitalization ordered by Tessa Headley for Inpatient Admission. Preliminary diagnosis are Chronic obstructive pulmonary disease with (acute) exacerbation, Hypoxemia, Dyspnea, unspecified. - Bed requested for Telemetry/MedSurg (Inpatient). - Status is Inpatient Admission. rv - Condition is Stable. - Problem is an acute exacerbation. - Symptoms have improved. UTI on Admission? No Signatures: Dispatcher [employer] EDMS Christiana Monroe RN RN aj1 Ivone Vickers RN RN dw Solis Caruso MD MD rn Calderon, Audri RN RN aa5 Benjamin Fragoso RN RN rv Corrections: (The following items were deleted from the chart) 14:33 12:21 Hospitalization Ordered by Tessa Headley MD for Inpatient Admission. Preliminary dw diagnosis is Chronic obstructive pulmonary disease with (acute) exacerbation; Hypoxemia; Dyspnea, unspecified. Bed requested for Telemetry/MedSurg (Inpatient). Status is Inpatient Admission. Condition is Stable. Problem is an acute exacerbation. Symptoms have improved. UTI on Admission? No. rn 15:58 14:33 01/26/2019 12:21 Hospitalization Ordered by Tessa Headley MD for Inpatient rv Admission. Preliminary diagnosis is Chronic obstructive pulmonary disease with (acute) exacerbation; Hypoxemia; Dyspnea, unspecified. Bed requested for Telemetry/MedSurg (Inpatient). Status is Inpatient Admission. Condition is Stable. Problem is an acute exacerbation. Symptoms have improved. UTI on Admission? No. dw
--- NOTE | 2019-01-26 12:22 | ER ---
Nurse's Notes [facility] Name: Fausto Schaefer Age: 83 yrs Sex: Male : 1935 Arrival Date: 01/26/2019 Time: 09:54 Bed 26 Private MD: Diagnosis: Chronic obstructive pulmonary disease with (acute) exacerbation;Hypoxemia;Dyspnea, unspecified Presentation: 01/26 10:18 Presenting complaint: Patient states: SOB that got worse over the last 3 days. Pt aa5 reports being seen here just a few days ago. Transition of care: patient was not received from another setting of care. Onset of symptoms was December 2018. Risk Assessment: Do you want to hurt yourself or someone else? Patient reports no desire to harm self or others. Care prior to arrival: None. 10:18 Method Of Arrival: Ambulatory aa5 10:18 Acuity: VITALY 2 aa5 11:00 Initial Sepsis Screen: Does the patient meet any 2 criteria? RR > 20 per min. No. aj1 Patient's initial sepsis screen is negative. Does the patient have a suspected source of infection? No. Patient's initial sepsis screen is negative. Historical: - Allergies: 10:21 No Known Allergies; aa5 - PMHx: 10:21 COPD; aa5 - PSHx: 10:21 None; aa5 - Immunization history:: Adult Immunizations up to date. - Social history:: Smoking status: Patient uses tobacco products, smokes one pack cigarettes per day. - Ebola Screening: : No symptoms or risks identified at this time. - Family history:: not pertinent. - Hospitalizations: : No recent hospitalization is reported. The patient was recently seen at [facility]. Screenin:30 Abuse screen: Denies threats or abuse. Denies injuries from another. Nutritional aj1 screening: No deficits noted. Tuberculosis screening: No symptoms or risk factors identified. 15:05 Fall Risk No fall in past 12 months (0 pts). No secondary diagnosis (0 pts). IV access aj1 (20 points). Ambulatory Aid- None/Bed Rest/Nurse Assist (0 pts). Gait- Normal/Bed Rest/Wheelchair (0 pts) Mental Status- Oriented to own ability (0 pts). Total Cohen Fall Scale indicates No Risk (0-24 pts). Assessment: 10:30 General: Appears in no apparent distress. comfortable, Behavior is calm, cooperative, aj1 appropriate for age. Pain: Denies pain. Neuro: Level of Consciousness is awake, alert, obeys commands, Oriented to person, place, time, situation. Cardiovascular: Heart tones S1 S2 present Patient's skin is warm and dry. Rhythm is sinus rhythm. Respiratory: Reports shortness of breath at rest cough that is non-productive, Patient states that he feels much better since we put him on oxygen Airway is patent Respiratory effort is even, unlabored, Respiratory pattern is regular, symmetrical, Breath sounds with wheezes bilaterally. GI: No signs and/or symptoms were reported involving the gastrointestinal system. : No signs and/or symptoms were reported regarding the genitourinary system. EENT: No signs and/or symptoms were reported regarding the EENT system. Derm: No signs and/or symptoms reported regarding the dermatologic system. Skin is pink, warm \T\ dry. normal. Musculoskeletal: No signs and/or symptoms reported regarding the musculoskeletal system. Circulation, motion, and sensation intact. 11:30 Reassessment: Patient appears in no apparent distress at this time. No changes from aj1 previously documented assessment. Patient and/or family updated on plan of care and expected duration. Pain level reassessed. Patient is alert, oriented x 3, equal unlabored respirations, skin warm/dry/pink. 12:30 Reassessment: Patient and/or family updated on plan of care and expected duration. Pain aj1 level reassessed. General: Appears in no apparent distress. comfortable, Behavior is calm, cooperative, appropriate for age. Pain: Denies pain. Neuro: Level of Consciousness is awake, alert, obeys commands, Oriented to person, place, time, situation. Cardiovascular: Patient's skin is warm and dry. Rhythm is sinus rhythm. Respiratory: Airway is patent Respiratory effort is even, unlabored, Respiratory pattern is. Derm: No signs and/or symptoms reported regarding the dermatologic system. Skin is pink, warm \T\ dry. normal. Musculoskeletal: Circulation, motion, and sensation intact. 13:30 Reassessment: Patient appears in no apparent distress at this time. No changes from aj1 previously documented assessment. Patient and/or family updated on plan of care and expected duration. Pain level reassessed. Patient is alert, oriented x 3, equal unlabored respirations, skin warm/dry/pink. 14:30 Reassessment: Patient appears in no apparent distress at this time. No changes from aj1 previously documented assessment. Patient and/or family updated on plan of care and expected duration. Pain level reassessed. Patient is alert, oriented x 3, equal unlabored respirations, skin warm/dry/pink. 15:02 Reassessment: Attempted to call reports to 2nd floor. Receiving nurse will call back. aj1 Vital Signs: 10:18 BP 162 / 71; Pulse 104; Resp 24 S; Temp 98.8(TE); Pulse Ox 86% on R/A; aa5 10:21 Pulse Ox 92% on 3 lpm NC; aa5 11:00 BP 155 / 62; Pulse 88; Resp 24; Pulse Ox 95% on 3 lpm NC; aj1 11:30 Pulse 76; Resp 20; Pulse Ox 96% on 3 lpm NC; aj1 12:00 BP 147 / 56; Pulse 75; Resp 18; Pulse Ox 94% on 3 lpm NC; aj1 12:30 BP 152 / 53; Pulse 89; Resp 20; Pulse Ox 96% on 3 lpm NC; aj1 13:00 BP 153 / 67; Pulse 75; Resp 20; Pulse Ox 96% on 3 lpm NC; aj1 13:27 BP 143 / 61; Pulse 70; Resp 20; Pulse Ox 95% on 3 lpm NC; aj1 14:28 BP 154 / 74; Pulse 68; Resp 22; Pulse Ox 94% on 3 lpm NC; aj1 15:04 BP 147 / 64; Pulse 72; Resp 20; Pulse Ox 96% on 3 lpm NC; aj1 15:30 BP 132 / 54; Pulse 79; Resp 14; Pulse Ox 97% on 3 lpm NC; rv ED Course: 09:54 Patient arrived in ED. as 10:18 Arm band placed on. aa5 10:20 Triage completed. aa5 10:25 Solis Caruso MD is Attending Physician. rn 10:30 Patient has correct armband on for positive identification. Bed in low position. Call aj1 light in reach. Side rails up X 1. civil engineering drafter on. Pulse ox on. NIBP on. 10:30 No provider procedures requiring assistance completed. aj1 10:44 Christiana Monroe, RN is Primary Nurse. aj1 11:03 Radiology exam delayed due to Leah drawing labs. sw 11:05 EKG done, by mineral surveying technician. reviewed by Solis Caruso MD. dt2 11:05 Inserted saline lock: 20 gauge in right forearm, using aseptic technique. Blood aj1 collected. 11:05 Initial lab(s) drawn, by id, sent to lab. First set of blood cultures drawn. aj1 11:25 Second set of blood cultures drawn by me. aj1 11:42 XRAY CXR (1 view) In Process Unspecified. EDMS 12:21 Tessa Headley MD is Hospitalizing Provider. rn 15:04 Patient admitted, IV remains in place. aj1 15:05 Report given to MIRIAM Prieto. aj1 Administered Medications: 11:17 Drug: Xopenex (3) 1.25 mg Route: Inhalation; aj1 11:30 Follow up: Response: No adverse reaction aj1 11:40 Drug: SOLU-Medrol 125 mg Route: IVP; Site: right forearm; aj1 12:30 Follow up: Response: No adverse reaction aj1 Outcome: 12:21 Decision to Hospitalize by Provider. rn 15:36 Admitted to Med/surg accompanied by tech, via wheelchair, room 209, with chart, Report rv called to SONIA 15:36 Condition: stable 15:36 Instructed on the need for admit, Demonstrated understanding of instructions. 15:58 Patient left the ED. rv Signatures: Dispatcher [employer] Christiana Jennings, RN RN aj1 Margarita Garcia Roman, MD MD rn Calderon, Audri, RN RN aa5 Estefania Nicholson Danielle dt2 Benjamin Fragoso RN RN rv
[2019-01-26] MEDS: ENOXAPARIN 40 MG/0.4 ML SQ SCH (17:05)
[2019-01-26] MEDS: IPRATROPIUM BROM 0.5MG/2.5ML NEB SCH ×2 (17:30→20:00)
[2019-01-26] MEDS: LEVALBUTEROL 1.25 MG/3 ML NEB NEB SCH ×2 (17:30→20:00)
--- NOTE | 2019-01-26 18:15 | P.HP ---
Certification for Inpatient Patient admitted to: Inpatient Practitioner: I am a practitioner with admitting privileges, knowledge of patient current condition, hospital course, and medical plan of care. Services: Services provided to patient in accordance with Admission requirements found in Title 42 Section 412.3 of the Code of Federal Regulations Patient History Date of Service: 01/26/19 Primary Care Provider: None, currently pending insurance to establish care with a PCP (Dr. Bae) Reason for admission: COPD exacerbation History of Present Illness: This is a 83-year-old current smoker male with a past medical history of COPD, hypertension and hyperlipidemia admitted for COPD exacerbation. Per patient, he was seen here on Saturday for a COPD exacerbation, discharged home with steroids and antibiotics. He did not improve, states that actually worsened. He is complaining of shortness of breath not relieved with his breathing treatments and albuterol inhaler at home. He therefore came to the ER. In the ER, his blood pressure was 162/71, heart rate of 104, respirations of 24 , afebrile at 98.8 and satting 86% on room air. He was provided O2 oxygen which helped improve his saturation. He was satting 92% on 3 L oxygen via nasal cannula. No blood gases were done in the ER. His labs remarkable for WBC count 15.7, otherwise labs were unremarkable. His chest x-ray was without evidence of COPD changes. He received breathing treatments with Xopenex and IV Solu-Medrol 125 mg in the ER. At the time of my exam, patient was alert oriented x3, in no acute distress. Stated that his symptoms had drastically improved and almost completely resolved. He was on 3 L oxygen via nasal cannula. He was admitted for further treatment for COPD exacerbation. Allergies No Known Allergies Allergy (Unverified 01/26/19 14:24) Home medications list reviewed: Yes Home Medications: Albuterol Inhaler [Ventolin Inhaler] 2 puff IH Q6H PRN 01/26/19 Alfuzosin HCl [Alfuzosin HCl ER] 10 mg PO DAILY 01/26/19 Alprazolam [Xanax] 0.25 mg PO BEDTIME 01/26/19 Amlodipine [Norvasc] 10 mg PO DAILY 01/26/19 Budesonide/Formoterol Fumarate [Symbicort 160-4.5 Mcg Inhaler] 2 puff IH BID PRN 01/26/19 Finasteride [Proscar] 5 mg PO DAILY 01/26/19 Hydroxyzine HCl [Atarax] 10 mg PO BEDTIME 01/26/19 Levothyroxine [Synthroid] 112 mcg PO [id number] 01/26/19 Olmesartan Medoxomil [Benicar] 20 mg PO DAILY 01/26/19 Pravastatin Sodium 40 mg PO BEDTIME 01/26/19 - Past Medical/Surgical History Has patient received pneumonia vaccine in the past: Yes Diabetic: No -: copd -: hyperlipidemia -: thyroid problem -: htn -: ruled out acs 2015 - Social History Smoking Status: Current some day smoker Alcohol use: No CD- Drugs: No Caffeine use: No Place of Residence: Home Review of Systems 10-point ROS is otherwise unremarkable Physical Examination - Vital Signs Temperature: 97.7 F Blood Pressure: 149/67 Pulse: 75 Respirations: 18 Pulse Ox (%): 95 - Physical Exam General: Alert, In no apparent distress, Oriented x3, Cachectic HEENT: Atraumatic, PERRLA, Mucous membr. moist/pink, EOMI, Sclerae nonicteric Neck: Supple, 2+ carotid pulse no bruit, No LAD, Without JVD or thyroid abnormality Respiratory: Dull, Crackles/rales, Expiratory wheezes, Other (Tachypneic) Cardiovascular: Normal S1 S2, Irregular heart rate/rhythm (Tachycardic) Gastrointestinal: Normal bowel sounds, No tenderness Musculoskeletal: No tenderness Integumentary: No rashes Neurological: Normal gait, Normal speech, Normal strength at 5/5 x4 extr, Normal tone, Normal affect Lymphatics: No axilla or inguinal lymphadenopathy - Studies Laboratory Data (last 24 hrs) 01/26/19 11:05: WBC 15.7 H, Hgb 14.5, Hct 42.7, Plt Count 285 01/26/19 11:05: Sodium 137, Potassium 3.5, BUN 24 H, Creatinine 1.22, Glucose 89 Assessment and Plan - Problems (Diagnosis) (1) COPD exacerbation Current Visit: Yes Status: Acute Plan: -IV steroids, breathing treatments and oxygen as needed. Continue to wean off of oxygen. -Patient will need an outpatient pulmonology appointment/consultation for further PFT testing. -no need for antibiotics at this time. No evidence of sepsis or SIRS at this time. (2) Hypoxia Current Visit: Yes Status: Acute (3) Current smoker Current Visit: Yes Status: Chronic Plan: Counseled on smoking cessation, 5 min (4) COPD (chronic obstructive pulmonary disease) Current Visit: Yes Status: Chronic Qualifiers: COPD type: unspecified COPD Qualified Code(s): J44.9 - Chronic obstructive pulmonary disease, unspecified (5) Hypertension Current Visit: No Status: Chronic Qualifiers: Hypertension type: essential hypertension Qualified Code(s): I10 - Essential (primary) hypertension (6) Hyperlipidemia Current Visit: No Status: Chronic Qualifiers: Hyperlipidemia type: unspecified Qualified Code(s): E78.5 - Hyperlipidemia , unspecified (7) Thyroid disease Current Visit: No Status: Chronic - Plan DVT prophylaxis: Lovenox GI prophylaxis: None Diet: Heart healthy Disposition: Pending clinical improvement. - Advance Directives Does patient have a Living Will: No Does patient have a Durable POA for Healthcare: No Time Spent Managing Pts Care (In Minutes): 55
[2019-01-26] MEDS ORDERED: Budesonide/Formoterol Fumarate (Symbicort) 160-4.5 Mcg Inhaler IH PRN (18:17)
[2019-01-26] MEDS ORDERED: HOME MED 1 EA UNK (Pravastatin Sodium [Pravastatin Sodium] 40 MG) PO SCH (21:00)
[2019-01-26] MEDS: ATORVASTATIN 10 MG TAB PO SCH (21:00)
[2019-01-27] MEDS: METHYLPREDNISOLONE 40 MG INJ IV SCH ×4 (01:00→20:42)
[2019-01-27] MEDS: LEVALBUTEROL 1.25 MG/3 ML NEB NEB SCH ×4 (02:00→20:05)
[2019-01-27] MEDS: IPRATROPIUM BROM 0.5MG/2.5ML NEB SCH ×4 (02:00→20:05)
[2019-01-27] MEDS: LEVOTHYROXINE SOD 0.112 MG TAB PO SCH (05:18)
[2019-01-27 05:51] LABS: Absolute Lymphocytes (CBC) 0.2 K/uL (0.7-4.9); Absolute Monocytes 0.5 K/uL (0.1-1.3); Absolute Neutrophil 15.4 K/uL (1.8-8.0); Hematocrit 36.6 % (39.6-49.0); Lymphocytes % 1.2 % (15.3-44.8); MPV 8.6 fL (7.6-11.3); Monocytes % 3.2 % (3.3-12.3); RBC Red Blood Cell Count 4.01 M/uL (4.33-5.43)
[2019-01-27 06:18] LABS: Albumin 2.4 g/dL (3.4-5.0); Bilirubin Total 0.4 mg/dL (0.2-1.0); Magnesium 2.4 mg/dL (1.8-2.4); Phosphorus 2.6 mg/dL (2.5-4.9); Potassium 4.3 mmol/L (3.5-5.1); Protein, Total 5.8 g/dL (6.4-8.2)
[2019-01-27] MEDS: HOME MED 1 EA UNK (Alfuzosin Hcl [Alfuzosin Hcl Er] 10 MG) PO SCH (08:47)
[2019-01-27] MEDS: VALSARTAN 80 MG TAB PO SCH (08:54)
[2019-01-27] MEDS: AMLODIPINE 10 MG TAB PO SCH (08:55)
[2019-01-27] MEDS: FINASTERIDE 5 MG TAB PO SCH (08:55)
[2019-01-27] MEDS: ENOXAPARIN 40 MG/0.4 ML SQ SCH (08:55)
[2019-01-27] MEDS ORDERED: HOME MED 1 EA UNK (Olmesartan Medoxomil [Benicar] 20 MG) PO SCH (09:00)
--- NOTE | 2019-01-27 20:37 | PN ---
Date of Progress Note: 01/27/2019 Patient seen and examined. Chart reviewed and case discussed with RN. The patient denies any significant pain still having wheezing. States that he was unable to breathe on oxygen at supplemental oxygen at home. Code Status: Full. Medications reviewed Physical Examination: Vital Signs: Temperature 98.6, heart rate 66, blood pressure 159/70, respirations 20, O2 97% on 2 liters via nasal cannula. General: Awake, alert, oriented x3, elderly male, ill-appearing, cachectic, BMI 17. CV: S1, S2. Regular rate and rhythm. Peripheral pulses weak bilaterally. Respiratory: Diminished breath sounds, wheezing heard throughout. No use of accessory muscles. Gastrointestinal: Abdomen is soft, nontender, nondistended. Positive bowel sounds. Extremities: No clubbing, cyanosis, or edema. Neuro: Cranial nerves 2 through 12 intact grossly. No focal neurological deficit. Speech is normal. Laboratory Data: Sodium 136, potassium 4.3, chloride 102, CO2 27, BUN 29, creatinine 1.28, glucose 123, calcium 7.5, phosphorus 2.6, magnesium 2.4, albumin 2.4. WBC 16.1, H and H 12.6 and 36.6, platelets 272, neutrophils 95%. Assessment And Plan: An 83-year-old male with. 1. Acute chronic obstructive pulmonary disease exacerbation. Continue breathing treatments. Supplemental oxygen. IV steroids. Start to wean as tolerated. The patient has not seen any medical records director. Will need to be evaluated by pulmonology as outpatient including pulmonary function testing. 2. Hypoxia, currently on 2 L via nasal cannula secondary to above. We will check for room air sats to see patient qualifies for home oxygen. 3. Nicotine dependence with cigarette smoking, continuous. The patient has been counseled. 4. Essential hypertension, stable. Resume home medications as appropriate. 5. Mixed hyperlipidemia, continue statin. 6. Hypothyroidism, we will continue Synthroid. 7. Failure to thrive with severe protein-calorie malnutrition, albumin is 2.4. We will consult dietitian. 8. DVT prophylaxis with Lovenox. Plan: Resume home medications as appropriate. We will adjust steroids likely switch to q.12 hours in a.m. Overall, patient's prognosis is very poor. /ISAURO Voice ID: [id number] Report ID: [id number] MTDD
[2019-01-27] MEDS: ATORVASTATIN 10 MG TAB PO SCH (20:42)
[2019-01-27] MEDS: ENSURE HIGH PROTEIN 237 ML CAN PO SCH (20:44)
[2019-01-28] MEDS: LEVALBUTEROL 1.25 MG/3 ML NEB NEB SCH ×4 (01:25→20:00)
[2019-01-28] MEDS: IPRATROPIUM BROM 0.5MG/2.5ML NEB SCH ×4 (01:25→20:00)
[2019-01-28] MEDS: LEVOTHYROXINE SOD 0.112 MG TAB PO SCH (05:40)
[2019-01-28 06:07] LABS: Absolute Lymphocytes (CBC) 0.3 K/uL (0.7-4.9); Absolute Monocytes 0.7 K/uL (0.1-1.3); Absolute Neutrophil 17.8 K/uL (1.8-8.0); Basophils % 0.4 % (0-1.3); Hematocrit 36.1 % (39.6-49.0); Lymphocytes % 1.4 % (15.3-44.8); Monocytes % 3.7 % (3.3-12.3); RBC Red Blood Cell Count 3.93 M/uL (4.33-5.43)
[2019-01-28 06:26] LABS: Albumin 2.3 g/dL (3.4-5.0); Bilirubin Total 0.3 mg/dL (0.2-1.0); Potassium 4.4 mmol/L (3.5-5.1); Protein, Total 5.5 g/dL (6.4-8.2)
[2019-01-28] MEDS: HOME MED 1 EA UNK (Alfuzosin Hcl [Alfuzosin Hcl Er] 10 MG) PO SCH (09:00)
[2019-01-28] MEDS: VALSARTAN 80 MG TAB PO SCH ×2 (09:00→09:45)
[2019-01-28] MEDS: METHYLPREDNISOLONE 40 MG INJ IV SCH (09:44)
[2019-01-28] MEDS: ENOXAPARIN 40 MG/0.4 ML SQ SCH (09:44)
[2019-01-28] MEDS: AMLODIPINE 10 MG TAB PO SCH (09:45)
[2019-01-28] MEDS: ENSURE HIGH PROTEIN 237 ML CAN PO SCH (09:46)
[2019-01-28] MEDS: FINASTERIDE 5 MG TAB PO SCH (09:46)
[2019-01-28] MEDS ORDERED: TAMSULOSIN 0.4 MG SR CAP PO ONE (12:34)
[2019-01-28] MEDS: NA CHLORIDE 0.9% 1,000 ML IV SCH (13:13)
[2019-01-28] MEDS ORDERED: GUAIFENESIN/CODEINE 5ML UCUP PO PRN (15:17)
--- NOTE | 2019-01-28 16:23 | PN ---
Date of Progress Note: 01/28/2019 Subjective: The patient is seen and examined. Chart reviewed, and case discussed with RN and Case Management. The patient being evaluated for home O2 , for which he qualified. The patient's overall condition is improving. Wheezing has improved, not as much cough. Medications: List reviewed. Physical Examination: Vital Signs: Temperature 97.6, heart rate 73, blood pressure 184/73, respirations 20, O2 of 95% on 2 L via nasal cannula. General: Awake, alert, oriented x3. An elderly male, frail, cachectic. BMI 17. CV: S1, S2. Regular rate and rhythm. Peripheral pulses weak bilaterally. Respiratory: Diminished breath sounds. Minimal wheezing heard. No stridor. No use of accessory muscles. Gastrointestinal: Abdomen is soft, nontender, nondistended. Positive bowel sounds. Extremities: No clubbing, cyanosis, or edema. Neurologic: Nonfocal. Laboratory Data: Sodium 137, potassium 4.4, chloride 101, CO2 of 30, BUN 38, creatinine 1.45, glucose 146, calcium 7.9, albumin 2.3. WBC 18.8, H and H 12.5 and 36.1, platelets 264, neutrophils 94%. Blood cultures, no growth to date. Assessment: An 83-year-old male with: 1. Chronic obstructive pulmonary disease. Requiring supplemental O2. The patient is significantly improved. We will switch to p.o. steroids. Continue breathing treatments as needed. The patient will need to follow up with problem manager as outpatient and obtain PFTs. 2. Hypoxia. The patient qualifies for home O2. We will continue supplemental oxygen. 3. Nicotine dependence with cigarette smoking, continuous, counseled. 4. Essential hypertension, stable. We will hold valsartan due to creatinine being elevated. 5. Acute kidney injury. We will avoid ARB for now. Start on IV fluids and monitor. Avoid NSAIDs. 6. Steroid-induced leukocytosis. We will wean steroids off. 7. Mixed hyperlipidemia. We will continue statin. 8. Hypothyroidism. Continue Synthroid. 9. Failure to thrive with severe protein-calorie malnutrition. Albumin is 2.4. Continue with supplements. Consult dietitian. 10. Deep venous thrombosis prophylaxis with Lovenox. Plan: Set up home O2. Likely discharge in the next 24 hours if kidney function improves. SA/MODL Voice ID: [id number] Report ID: [id number]
[2019-01-28] MEDS: predniSONE 20 MG TAB PO SCH (21:14)
[2019-01-28] MEDS: ATORVASTATIN 10 MG TAB PO SCH (21:15)
[2019-01-28] MEDS: ENSURE ENLIVE 237 ML CAN PO SCH (21:16)
[2019-01-29] MEDS: NA CHLORIDE 0.9% 1,000 ML IV SCH ×2 (01:20→14:26)
[2019-01-29] MEDS: IPRATROPIUM BROM 0.5MG/2.5ML NEB SCH ×4 (02:00→19:01)
[2019-01-29] MEDS: LEVALBUTEROL 1.25 MG/3 ML NEB NEB SCH ×4 (02:00→19:01)
[2019-01-29 05:26] LABS: Absolute Lymphocytes (CBC) 0.2 K/uL (0.7-4.9); Absolute Monocytes 0.9 K/uL (0.1-1.3); Absolute Neutrophil 21.6 K/uL (1.8-8.0); Basophils % 0.4 % (0-1.3); Lymphocytes % 1.1 % (15.3-44.8); MPV 8.8 fL (7.6-11.3); RBC Red Blood Cell Count 4.13 M/uL (4.33-5.43)
[2019-01-29 05:45] LABS: Albumin 2.3 g/dL (3.4-5.0); Bilirubin Total 0.3 mg/dL (0.2-1.0); Potassium 4.3 mmol/L (3.5-5.1); Protein, Total 5.6 g/dL (6.4-8.2)
[2019-01-29] MEDS: LEVOTHYROXINE SOD 0.112 MG TAB PO SCH (05:58)
[2019-01-29 06:25] LABS: Blood Morphology Comment NOT SEEN (NOT SEEN); Platelet Estimate ADEQ
[2019-01-29] MEDS: predniSONE 20 MG TAB PO SCH ×2 (08:57→20:45)
[2019-01-29] MEDS: AMLODIPINE 10 MG TAB PO SCH (08:57)
[2019-01-29] MEDS: FINASTERIDE 5 MG TAB PO SCH (08:57)
[2019-01-29] MEDS: ENSURE ENLIVE 237 ML CAN PO SCH ×2 (08:59→20:45)
[2019-01-29] MEDS ORDERED: ENOXAPARIN 30 MG/0.3 ML SQ SCH (09:00)
[2019-01-29] MEDS ORDERED: TAMSULOSIN 0.4 MG SR CAP PO SCH (09:00)
[2019-01-29] MEDS: VALSARTAN 80 MG TAB PO SCH (09:45)
[2019-01-29] MEDS: ATORVASTATIN 10 MG TAB PO SCH (20:45)
--- NOTE | 2019-01-30 06:53 | DS ---
Date of Discharge: 01/29/2019 Admitting Diagnoses: 1.Acute chronic obstructive pulmonary disease exacerbation. 2.Hypoxia. 3.Nicotine dependence with cigarette smoking, counseled. 4.Essential hypertension. 5.Hyperlipidemia. 6.Hypothyroidism. Discharge Diagnoses: 1.Acute chronic obstructive pulmonary disease exacerbation, resolved. 2.Chronic obstructive pulmonary disease, chronic bronchitis. 3.Hypoxia. 4.Nicotine dependence with cigarette smoking, continuous. 5.Essential hypertension, stable. 6.Acute kidney injury, resolved. 7.Steroid-induced leukocytosis. No signs of sepsis. No fever. 8.Mixed hyperlipidemia, statin. 9.Hypothyroidism, on Synthroid. 10.Failure to thrive with severe protein-calorie malnutrition and albumin 2.4. 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 The patient was 86% on room air. He was started on supplemental oxygen and improved. Whit e count was elevated at 15,000. Chest x-ray did not show any acute infiltrates. Did have some COPD changes. The patient was started on breathing treatments and IV steroids. There was no signs of sep sis. The patient did have negative procalcitonin level, negative troponin level. He did have some e levated kidney function, which was treated with IV fluids and his creatinine normalized. The patient is cachectic with BMI of 17, was started on protein supplementation. He did develop steroid-induced leukocytosis. No signs of sepsis. No fevers, chills. Normal procalcitonin level. The patient's s teroids were weaned off. Blood cultures remained negative. The patient was qualified for home O2 an d the patient was feeling better. He was able to ambulate, however, was requiring oxygen. Once O2 w as set up, he was discharged home in a stable condition. Activity: No strenuous activity. Diet: Heart healthy. Followup: Follow up with primary care physician in 2 to 3 days. Return to ER for worsening conditio n. Establish care with floorwalker, Dr. Easley in 2 weeks. Medications: As per medication reconciliation list. Physical Examination: General: Awake, alert, oriented x3. Elderly male, frail, cachectic. CV: S1, S2. No murmurs. Respiratory: Diminished breath sounds, minimal wheezing. Gastrointestinal: Abdomen is soft, nontender, nondistended. Positive bowel sounds. Extremities: No clubbing, cyanosis, or edema. Neurologic: Nonfocal. Total time spent discharging the patient was 33 minutes. /ISAURO Voice ID: [id number] Report ID: [id number]
[2019-01-30] MEDS ORDERED: ENOXAPARIN 40 MG/0.4 ML SQ SCH (09:00)
== END 2019-01-29 21:02 | disposition home or self-care (01) | DRG 190 ==
LOC: ER 09:53 → ERHOLD 12:26 → 2ND 15:36
PROVIDERS: ADMIT Family Medicine; ATTEND Family Medicine
DX: J44.1 Chronic obstructive pulmonary disease with (acute) exacerbation (principal); E43 Unspecified severe protein-calorie malnutrition; Z68.1 Body mass index [BMI] 19.9 or less, adult; N17.9 Acute kidney failure, unspecified; F17.210 Nicotine dependence, cigarettes, uncomplicated; R62.7 Adult failure to thrive; I10 Essential (primary) hypertension; E78.2 Mixed hyperlipidemia; E03.9 Hypothyroidism, unspecified; D72.829 Elevated white blood cell count, unspecified; T38.0X5A Adverse effect of glucocorticoids and synthetic analogues, initial encounter; Z79.51 Long term (current) use of inhaled steroids
CPT/HCPCS: 36415; 71045; 71046; 80048; 80053; 80076; 83605; 83735; 83880; 84100; 84145; 84484; 85025; 85610; 87040; 93005; 94640; 94760; 96374; 99285; J1650; J2920; J2930; J7030; J7512

== ENCOUNTER 2020-10-21 15:05 | Emergency (ER) | payer OTHER, MEDICARE ==
--- OUTSIDE RECORDS SUMMARY | 2020-10-21 15:08 | XMS REPORT | Continuity of Care Document ---
:1935 Author Organization [facility] t Address [address] [place] [address] Care Team Providers Name Role Phone Abiodun RAMIREZ Primary Care Physician Daren Lagunas MD Attending Clinician Sheree Attending Clinician Unavailable Payers Payer Name Policy Type Policy Effective Date Expiration Date Sour ce Number MEDICAREMEDICARE PART [id number] Deniz Wilcox AND 00:00:00 [facility] [id number] [place] [id number] 2016 [place] [id number] 00:00:00 Met carrera /09/2016-Lui hogue Problems Condition Condition Condition Status Onset Resolution Last Treating Co mments Source Name Details Category Date Date Treatment Clinician Date Allergic Allergic Disease Active [place] sinusitis sinusitis 6-22 [place] 00:00: st 00 Chronic Chronic Disease Active [place] obstructiv obstructiv 8-06 [place] thodi e e 00:00: st pulmonary pulmonary 00 disease disease Tobacco Tobacco Disease Active [place] dependency dependency 8-06 Me thodi 00:00: st 00 Allergies, Adverse Reactions, Alerts This patient has no known allergies or adverse reactions. Family History Family Member Diagnosis Comments Start Date Stop Date Source Natural father Heart attack Keny Dash Social History Social Habit Start Date Stop Date Quantity Comments Source Sex Assigned At [place] M ethodist Exposure to Not sure [place] [facility] dist SARS-CoV-2 (event) Cigarettes smoked 2020-10-06 2020-10-06 Keny Dash current (pack per 00:00:00 00:00:00 day) - Reported Cigarette 2020-10-06 2020-10-06 Keny Enriquez ist pack-years 00:00:00 00:00:00 Tobacco use and 2020-10-06 2020-10-06 Never used Keny Berger ethodist exposure 00:00:00 00:00:00 History of tobacco 2015-11-15 Current smoker Deniz Dash use 00:00:00 Smoking Status Start Date Stop Date Source Former smoker 2020-10-06 00:00:00 2020-10-06 00:00:00 Keny Dash Medications Ordered Filled Start Stop Current Ordering Indication Dosage Frequency Signature Comments Components Source Medication Medication Date Date Medication? Clinician (SIG) Name Name furosemide Yes Chronic TAKE 1 [place] (LASIX) 20 1-12 obstructive TABLET BY [facility] mg tablet 00:00: pulmonary MOUTH st 00 disease, EVERY DAY unspecified NEEDED COPD type FOR LEG (HCC) SWELLING doxepin Yes 10mg QD Take 10 mg [place] (SINEquan) 07 by mouth Meth[facility] di 10 MG 13:36: nightly. st capsule 18 hydrOXYzine Yes 10mg [id number] Take 10 mg [place] (ATARAX) 10 1-07 [id number] by mouth 3 [facility] MG tablet 13:36: 3D (three) st 18 times a day as needed for itching. predniSONE Yes 10mg QD Take 10 mg [place] (DELTASONE) 07 by mouth [place] 10 mg 13:36: daily. st tablet 18 amLODIPine Yes 10mg QD Take 10 mg H oush[place] (NORVASC) 07 by mouth Method i 10 mg 13:36: daily. st tablet 18 olmesartan Yes 20mg QD Take 20 mg [place] (BENICAR) -07 by mouth Method i 20 MG 13:36: daily. st tablet 18 budesonide- Yes 2{puff} Q.5D Inhale 2 [place] formoteroL -07 puffs 2 Method i (SYMBICORT) 13:36: (two) st 160-4.5 18 times a mcg/actuati day. on inhaler pravastatin Yes 40mg QD Take 40 mg Keny (PRAVACHOL) 07 by mouth [place] 40 mg 13:36: daily. st tablet 18 levocetiriz 2019-09 Yes TAKE 1 [place] (XYZAL) 2-17 TABLET BY Met hodi 5 MG tablet 00:00: MOUTH st 00 EVERY DAY IN THE EVENING furosemide 2019-09- No Chronic TAKE 1 [place] (LASIX) 20 2-10 01-12 obstructive TABLET BY [facility] mg tablet 00:00: 00:00 pulmonary MOUTH s t 00 :00 disease, EVERY DAY unspecified NEEDED COPD type FOR LEG (HCC) SWELLING furosemide 2019-09- No Chronic TAKE 1 [place] (LASIX) 20 1-12 12-10 obstructive TABLET BY [facility] mg tablet 00:00: 00:00 pulmonary MOUTH s t 00 :00 disease, EVERY DAY unspecified NEEDED COPD type FOR LEG (HCC) SWELLING furosemide 2019-09- No Chronic TAKE 1 [place] (LASIX) 20 0-20 11-12 obstructive TABLET BY [facility] mg tablet 00:00: 00:00 pulmonary MOUTH s t 00 :00 disease, EVERY DAY unspecified NEEDED COPD type FOR LEG (HCC) SWELLING ipratropium 2019-09 Yes USE 1 VIAL [place] -albuteroL 0-19 WITH [facility] (DUO-NEB) 00:00: NEBULIZER st 0.5-2.5 00 EVERY 6 mg/3 mL HOURS nebulizer NEEDED J44.9 predniSONE 2019-09- No Take 40 mg [place] (DELTASONE) 0-07 10-22 1 po qd x Me thodi 10 mg 00:00: 23:59 3 days, 30 st tablet 00 :00 mg 1 po qd x 3 days, 20 mg 1 po qd x 3 days, 10 mg 1 po qd x 3 days, 5 mg 1 po qd x 3 days furosemide 2019- No Chronic TAKE 1 [place] (LASIX) 20 9-23 10-20 obstructive TABLET BY [facility] mg tablet 00:00: 00:00 pulmonary MOUTH s t 00 :00 disease, EVERY DAY unspecified NEEDED COPD type FOR LEG (HCC) SWELLING levocetiriz 2019- No TAKE 1 Miri natalyan ine (XYZAL) 9-14 12-17 TABLET BY Me thodi 5 MG tablet 00:00: 00:[address] 00 :00 EVERY EVENING. furosemide 2019- No Chronic TAKE 1 [place] (LASIX) 20 8-27 09-23 obstructive TABLET BY [facility] mg tablet 00:00: 00:00 pulmonary MOUTH s t 00 :00 disease, EVERY DAY unspecified NEEDED COPD type FOR LEG (HCC) SWELLING furosemide 2019- No Chronic TAKE 1 [place] (LASIX) 20 05-02 obstructive TABLET BY [facility] mg tablet 00:00: 00:00 pulmonary MOUTH s t 00 :00 disease, EVERY DAY unspecified NEEDED COPD type FOR LEG (HCC) SWELLING furosemide 2019- No Chronic TAKE 1 [place] (LASIX) 20 04-04 obstructive TABLET BY [facility] mg tablet 00:00: 00:00 pulmonary MOUTH s t 00 :00 disease, EVERY DAY unspecified NEEDED COPD type FOR LEG (HCC) SWELLING levocetiriz 2019- No 5mg QD Take 1 Miri ston ine (Xyzal) 03-21 tablet (5 Me thodi 5 MG tablet 00:00: 00:00 mg total) st 00 :00 by mouth every evening for 30 days. furosemide 2019- No Chronic TAKE 1 [place] (LASIX) 01-20 obstructive TABLET BY [facility] mg tablet 00:00: 00:00 pulmonary MOUTH s t 00 :00 disease, EVERY DAY unspecified NEEDED COPD type FOR LEG (HCC) SWELLING furosemide 2019- No Chronic TAKE 1 [place] (LASIX) 12-29 obstructive TABLET BY [facility] mg tablet 00:00: 00:00 pulmonary MOUTH s t 00 :00 disease, EVERY DAY unspecified NEEDED COPD type FOR LEG (HCC) SWELLING tiotropium 2019- No Inhale. Miri ston bromide 12-16 [facility] (SPIRIVA 13:02: 00:00 st RESPIMAT) 34 :00 1.25 mcg/actuati on mist furosemide 2019- No Chronic TAKE 1 [place] (LASIX) 20 12-06 obstructive TABLET BY [facility] mg tablet 00:00: 00:00 pulmonary MOUTH s t 00 :00 disease, EVERY DAY unspecified NEEDED COPD type FOR LEG (HCC) SWELLING furosemide 2019- No Chronic TAKE 1 [place] (LASIX) 20 11-12 obstructive TABLET BY [facility] mg tablet 00:00: 00:00 pulmonary MOUTH s t 00 :00 disease, EVERY DAY unspecified NEEDED COPD type FOR LEG (HCC) SWELLING furosemide 2020- No Chronic TAKE 1 [place] (LASIX) 20 1-15 02-13 obstructive TABLET BY [facility] mg tablet 00:00: 00:00 pulmonary MOUTH s t 00 :00 disease, DAILY unspecified NEEDED FOR COPD type LEG (HCC) SWELLING ipratropium 2020- No USE 1 VIAL [place] -albuterol 04-08 VIA [facility] (DUO-NEB) 00:00: 00:[address] 0.5-2.5 00 :00 EVERY 6 mg/3 mL HOURS nebulizer NEEDED albuterol Yes INHALE 2 [place] (VENTOLIN 4-04 PUFFS BY Method i HFA) 90 00:00: MOUTH st mcg/actuati 00 EVERY 6 on inhaler HOURS NEEDED levothyroxi Yes TAKE 1 [place] ne 3-12 TABLET BY [facility] (SYNTHROID, 00:00: MOUTH ONCE st LEVOXYL) 00 DAILY FOR 112 mcg 90 DAYS tablet alfuzosin Yes TAKE 1 [place] (UROXATRAL) 2-26 TABLET BY Met hodi 10 mg 24 hr 00:00: MOUTH ONCE st tablet 00 A DAY FOR 90 DAYS finasteride Yes 5mg QD Take 5 mg [place] (PROSCAR) 5 2-05 by mouth [place] mg tablet 00:00: daily. st 00 pravastatin 2020- No TAKE 1 Miri ston (PRAVACHOL) - 03-19 TABLET BY Tx thodi 40 MG 00:00: 00:[address] tablet 00 :00 A DAY AT BEDTIME FOR 90 DAYS ALPRAZolam Yes .25mg QD Take 0.25 [place] (XANAX) 1-17 mg by [facility] 0.25 MG 00:00: mouth st tablet 00 daily. Immunizations Ordered Immunization Filled Immunization Date Status Commen ts Source Name Name FLUZONE HIGH-DOSE PF 2020-07-06 Completed [place] 00:00:00 [facility] Tdap 2018-10-24 Completed [place] 00:00:00 [facility] Pneumococcal 2012-10-17 Completed [place] Conjugate 13-Valent 00:00:00 [facility] Vital Signs Vital Name Observation Time Observation Value Comments Source Systolic blood 2020-10-06 13:34:00 158 mm[Hg] [place] [facility] pressure Diastolic blood 2020-10-06 13:34:00 73 mm[Hg] [place] [facility] pressure Heart rate 2020-10-06 13:34:00 76 /min [place] [facility] Body temperature 2020-10-06 13:34:00 37.11 [place] [facility] Respiratory rate 2020-10-06 13:34:00 14 /min [place] [facility] Body height 2020-10-06 13:34:00 172.7 cm [place] [facility] Body weight 2020-10-06 13:34:00 59.149 kg [place] [facility] BMI 2020-10-06 13:34:00 19.83 [facility] in 2020-10-06 13:34:00 96 /min [facility] Arterial blood by Pulse oximetry Procedures This patient has no known procedures. Plan of Care Planned Activity Planned Date Details Comments Source Future Scheduled 2013-10-17 65+ PNEUMOCOCCAL [place] [facility] Test 00:00:00 VACCINE (2 of 2 - PPSV23) [code = 65+ PNEUMOCOCCAL VACCINE (2 of 2 - PPSV23)] Future Scheduled 1987 [facility]INES (#[facility] Test 00:00:00 [code = SHINGLES VACCINES (#1)] Future Scheduled 1951 COVID-19 VACCINE (1 of [place] [facility] Test 00:00:00 2) [code = COVID-19 VACCINE (1 of 2)] Encounters Start End Encounter Admission Attending Care Care Encounter Source Date/Time Date/Time Type Type Clinicians Facility Department ID 2020-10-06 2020-10-06 Outpatient [facility] [id number] [place] 00:00:00 00:00:00 ADEL[place] [address] 2020-07-06 2020-07-06 Outpatient [facility] [id number] [place] 00:00:00 00:00:[address] A[place] [address] 2020-07-06 2020-07-06 Outpatient [facility] [id number] [place] 00:00:00 00:00:[address] 2020-03-21 2020-03-21 Outpatient [facility] [id number] [place] 00:00:00 00:00:00 A[place] [address] 2019-12-17 2019-12-17 Outpatient AL, [facility] [id number] [place] 00:00:00 00:00:[address] [place] [address] Results This patient has no known results.
--- OUTSIDE RECORDS SUMMARY | 2020-10-21 15:08 | XMS REPORT | Clinical Summary ---
:1935 Author Organization [facility] Address [address] [place] [address] Care Team Providers Name Role Phone Katharine Rascon MD Primary Care Provider Allergies Active Allergy Reactions Severity Noted Date Comments No Known Drug Allergies 03/08/2016 Medications Medication Sig Dispensed Refills Start End Date Status Date finasteride Take 5 mg by 0 Activ e (PROSCAR) 5 mg mouth daily. 8 tablet levothyroxine TAKE 1 TABLET 0 Ac tive (SYNTHROID, BY MOUTH ONCE 8 LEVOXYL) 112 mcg DAILY FOR 90 tablet DAYS ALPRAZolam (XANAX) Take 0.25 mg 0 Active 0.25 MG tablet by mouth 8 daily. alfuzosin TAKE 1 TABLET 0 Active (UROXATRAL) 10 mg BY MOUTH ONCE 8 24 hr tablet A DAY FOR 90 DAYS albuterol (VENTOLIN INHALE 2 PUFFS 18 Inhaler 0 Active HFA) 90 BY MOUTH EVERY 8 mcg/actuation 6 HOURS inhaler NEEDED doxepin (SINEquan) Take 10 mg by 0 Active 10 MG capsule mouth nightly. hydrOXYzine Take 10 mg by 0 Acti ve (ATARAX) 10 MG mouth 3 tablet (three) times a day as needed for itching. predniSONE Take 10 mg by 0 Activ e (DELTASONE) 10 mg mouth daily. tablet amLODIPine Take 10 mg by 0 Activ e (NORVASC) 10 mg mouth daily. tablet olmesartan Take 20 mg by 0 Activ e (BENICAR) 20 MG mouth daily. tablet budesonide-formoter Inhale 2 puffs 0 Active oL (SYMBICORT) 2 (two) times 160-4.5 a day. mcg/actuation inhaler pravastatin Take 40 mg by 0 Acti ve (PRAVACHOL) 40 mg mouth daily. tablet ipratropium-albuter USE 1 VIAL 1080 mL 2 Active oL (DUO-NEB) WITH NEBULIZER 0 0.5-2.5 mg/3 mL EVERY 6 HOURS nebulizer NEEDED J44.9 levocetirizine TAKE 1 TABLET 90 tablet 0 A ctive (XYZAL) 5 MG tablet BY MOUTH EVERY 0 DAY IN THE EVENING furosemide (LASIX) TAKE 1 TABLET 30 tablet 0 Active 20 mg BY MOUTH EVERY 1 tabletIndications: DAY NEEDED Chronic obstructive FOR LEG pulmonary disease, SWELLING unspecified COPD type (HCC) pravastatin TAKE 1 TABLET 0 12/17/19 Disc ontinued (PRAVACHOL) 40 MG BY MOUTH ONCE 8 20 (Therapy tablet A DAY AT completed) BEDTIME FOR 90 DAYS tiotropium bromide Inhale. 0 12/17/19 D iscontinued (SPIRIVA RESPIMAT) 20 ( Therapy 1.25 mcg/actuation c ompleted) mist ipratropium-albuter USE 1 VIAL VIA 1080 mL 2 07/18 Discontinued ol (DUO-NEB) NEBULIZER 9 20 0.5-2.5 mg/3 mL EVERY 6 HOURS nebulizer NEEDED furosemide (LASIX) TAKE 1 TABLET 30 tablet 0 0 Discontinued 20 mg BY MOUTH DAILY 0 20 tabletIndications: NEEDED FOR Chronic obstructive LEG SWELLING pulmonary disease, unspecified COPD type (HCC) furosemide (LASIX) TAKE 1 TABLET 30 tablet 0 0 Discontinued 20 mg BY MOUTH EVERY 0 20 tabletIndications: DAY NEEDED Chronic obstructive FOR LEG pulmonary disease, SWELLING unspecified COPD type (HCC) furosemide (LASIX) TAKE 1 TABLET 30 tablet 0 0 Discontinued 20 mg BY MOUTH EVERY 0 20 tabletIndications: DAY NEEDED Chronic obstructive FOR LEG pulmonary disease, SWELLING unspecified COPD type (HCC) furosemide (LASIX) TAKE 1 TABLET 30 tablet 0 0 Discontinued 20 mg BY MOUTH EVERY 0 20 tabletIndications: DAY NEEDED Chronic obstructive FOR LEG pulmonary disease, SWELLING unspecified COPD type (HCC) furosemide (LASIX) TAKE 1 TABLET 30 tablet 0 0 Discontinued 20 mg BY MOUTH EVERY 0 20 tabletIndications: DAY NEEDED Chronic obstructive FOR LEG pulmonary disease, SWELLING unspecified COPD type (HCC) levocetirizine Take 1 tablet 30 tablet 2 06/13/20 D iscontinued (Xyzal) 5 MG tablet (5 mg total) 0 20 by mouth every evening for 30 days. furosemide (LASIX) TAKE 1 TABLET 30 tablet 0 0 Discontinued 20 mg BY MOUTH EVERY 0 20 tabletIndications: DAY NEEDED Chronic obstructive FOR LEG pulmonary disease, SWELLING unspecified COPD type (HCC) furosemide (LASIX) TAKE 1 TABLET 30 tablet 0 0 Discontinued 20 mg BY MOUTH EVERY 0 20 tabletIndications: DAY NEEDED Chronic obstructive FOR LEG pulmonary disease, SWELLING unspecified COPD type (HCC) furosemide (LASIX) TAKE 1 TABLET 30 tablet 0 0 Discontinued 20 mg BY MOUTH EVERY 0 20 tabletIndications: DAY NEEDED Chronic obstructive FOR LEG pulmonary disease, SWELLING unspecified COPD type (HCC) levocetirizine TAKE 1 TABLET 90 tablet 0 09/15/20 D iscontinued (XYZAL) 5 MG tablet BY MOUTH EVERY 0 20 EVENING. furosemide (LASIX) TAKE 1 TABLET 30 tablet 0 0 Discontinued 20 mg BY MOUTH EVERY 0 20 tabletIndications: DAY NEEDED Chronic obstructive FOR LEG pulmonary disease, SWELLING unspecified COPD type (HCC) predniSONE Take 40 mg 1 32 tablet 0 07/21/20 d (DELTASONE) 10 mg po qd x 3 0 20 tablet days, 30 mg 1 po qd x 3 days, 20 mg 1 po qd x 3 days, 10 mg 1 po qd x 3 days, 5 mg 1 po qd x 3 days furosemide (LASIX) TAKE 1 TABLET 30 tablet 0 0 Discontinued 20 mg BY MOUTH EVERY 0 20 tabletIndications: DAY NEEDED Chronic obstructive FOR LEG pulmonary disease, SWELLING unspecified COPD type (HCC) furosemide (LASIX) TAKE 1 TABLET 30 tablet 0 0 Discontinued 20 mg BY MOUTH EVERY 0 20 tabletIndications: DAY NEEDED Chronic obstructive FOR LEG pulmonary disease, SWELLING unspecified COPD type (HCC) furosemide (LASIX) TAKE 1 TABLET 30 tablet 0 0 Discontinued 20 mg BY MOUTH EVERY 0 21 tabletIndications: DAY NEEDED Chronic obstructive FOR LEG pulmonary disease, SWELLING unspecified COPD type (HCC) Active Problems Problem Noted Date Allergic sinusitis 03/21/2020 Chronic obstructive pulmonary disease 05/05/2018 Tobacco dependency 05/05/2018 Encounters Date Type Specialty Care Team Description 10/11/2020 Refill Pulmonology Eliu Lagunas MD Chroni c obstructive pulmonary disea se, unspecified ANESTHESIOLOGY TECH D type (HCC) 10/06/2020 Office Visit Pulmonology Eliu Lagunas MD Chroni c obstructive pulmonary disea se, unspecified ANESTHESIOLOGY TECH D type (HCC) (Primary Dx) 10/06/2020 Travel 09/15/2020 Refill Pulmonology Eliu Lagunas MD 09/08/2020 Refill Pulmonology Eliu Lagunas MD Chroni c obstructive pulmonary disea se, unspecified ANESTHESIOLOGY TECH D type (HCC) 08/11/2020 Refill Pulmonology Eliu Lagunas MD Chroni c obstructive pulmonary disea se, unspecified ANESTHESIOLOGY TECH D type (HCC) 07/19/2020 Refill Pulmonology Eliu Lagunas MD Chroni c obstructive pulmonary disea se, unspecified ANESTHESIOLOGY TECH D type (HCC) 07/18/2020 Refill Pulmonology Eliu Lagunas MD 07/06/2020 Clinical Support Pulmonology Olegario Bentley o bstructive pulmonary disea se, unspecified ANESTHESIOLOGY TECH D type (HCC) 07/06/2020 Office Visit Pulmonology Eliu Lagunas MD Chroni c obstructive pulmonary disease, unspecified COPD type (HCC) (Primary Dx); Need for prophy lactic vaccination and inoculation against influenza 07/06/2020 Travel 06/22/2020 Refill Pulmonology Eliu Lagunas MD Chroni c obstructive pulmonary disea se, unspecified ANESTHESIOLOGY TECH D type (HCC) 06/21/2020 Travel 06/13/2020 Refill Pulmonology Eliu Lagunas MD 05/26/2020 Refill Pulmonology Eliu Lagunas MD Chroni c obstructive pulmonary disea se, unspecified ANESTHESIOLOGY TECH D type (HCC) 05/02/2020 Refill Pulmonology Eliu Lagunas MD Chroni c obstructive pulmonary disea se, unspecified ANESTHESIOLOGY TECH D type (HCC) 04/02/2020 Refill Pulmonology Eliu Lagunas MD Chroni c obstructive pulmonary disea se, unspecified ANESTHESIOLOGY TECH D type (HCC) 03/21/2020 Office Visit Pulmonology Eliu Lagunas MD Chroni c obstructive pulmonary disease, unspecified COPD type (HCC) (Primary Dx); Allergic sinusi tis 03/21/2020 Travel 01/21/2020 Refill Pulmonology Eliu Lagunas MD Chroni c obstructive pulmonary disea se, unspecified ANESTHESIOLOGY TECH D type (HCC) 12/30/2019 Refill Pulmonology Eliu Lagunas MD Chroni c obstructive pulmonary disea se, unspecified ANESTHESIOLOGY TECH D type (HCC) 12/17/2019 Office Visit Pulmonology Eliu Lagunas MD Chroni c obstructive pulmonary disea se, unspecified ANESTHESIOLOGY TECH D type (HCC) (Primary Dx) 12/17/2019 Travel 12/07/2019 Refill Pulmonology Eliu Lagunas MD Chroni c obstructive pulmonary disea se, unspecified ANESTHESIOLOGY TECH D type (HCC) 11/12/2019 Refill Pulmonology Eliu Lagunas MD Chroni c obstructive pulmonary disea se, unspecified ANESTHESIOLOGY TECH D type (HCC) after 10/21/2019 Immunizations Name Administration Dates Next Due FLUZONE HIGH-DOSE PF 07/06/2020 Pneumococcal Conjugate 13-Valent 10/17/2012 Tdap 10/24/2018 Medical History Medical History Date Comments COPD (chronic obstructive pulmonary disease) (HCC) Hypothyroidism Hyperlipidemia BPH (benign prostatic hyperplasia) Hypertension Family History Medical History Relation Name Comments Heart attack Father Relation Name Status Comments Father Social History Tobacco Use Types Packs/Day Years Used Date Former Smoker Cigarettes 1 50 Quit: 11/15/19 16 Smokeless Tobacco: Never Used Sex Assigned at Date Recorded Not on file Job Start Date Occupation Industry Not on file Not on file Not on file COVID-19 Exposure Response Date Recorded In the last month, have you been in contact with No / Unsure 10/06/2020 1:14 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 Last Filed Vital Signs Vital Sign Reading Time Taken Comments Blood Pressure 158/73 10/06/2020 1:34 PM CONTROLS TECHNICIAN Pulse 76 10/06/2020 1:34 PM CONTROLS TECHNICIAN Temperature 37.1 C (98.8 F) 10/06/2020 1:34 PM CONTROLS TECHNICIAN Respiratory Rate 14 10/06/2020 1:34 PM CONTROLS TECHNICIAN Oxygen Saturation 96% 10/06/2020 1:34 PM CONTROLS TECHNICIAN Inhaled Oxygen Concentration - - Weight 59.1 kg (130 lb 6.4 oz) 10/06/2020 1:34 PM CONTROLS TECHNICIAN Height 172.7 cm (5' 8") 10/06/2020 1:34 PM CONTROLS TECHNICIAN Body Mass Index 19.83 10/06/2020 1:34 PM CONTROLS TECHNICIAN Plan of Treatment Date Type Specialty Care Team Description 11/07/2020 Clinical Support Internal Medicine 02/06/2021 Office Visit Pulmonology Eliu Lagunas MD [address] [place], [place] [address] Health Maintenance Due Date Last Done Comments COVID-19 VACCINE (1 of 2) 1951 SHINGLES VACCINES (#1) 1987 65+ PNEUMOCOCCAL VACCINE (2 of 2 - PPSV23) 10/17/201310/17 INFLUENZA VACCINE Completed 07/06/2020 Results Not on fileafter 10/21/2019 Insurance Payer Benefit Plan / Subscriber ID Effective Dates Phone Addre ss Type Group MEDICARE MEDICARE PART A [id number] 2002-Present [facility] [place] [place] AND B AARP AARP SUPPLEMENT [id number] 2016-Present Commercial Advance Directives For more information, please contact: [phone] Type Date Recorded Patient Customer Service Advisor Explanati on Advance Directives, Living Will and Medical Power of Management Analyst
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
[2020-10-21 17:34] LABS: Absolute Lymphocytes (CBC) 1.2 K/uL (0.7-4.9); Basophils % 0.6 % (0-1.3); Lymphocytes % 9.1 % (15.3-44.8); MPV 8.5 fL (7.6-11.3); Protime INR 0.98; RBC Red Blood Cell Count 4.07 M/uL (4.33-5.43)
[2020-10-21] MEDS ORDERED: NA CHLORIDE 0.9% 250 ML ONE (17:43)
[2020-10-21] MEDS ORDERED: MORPHINE 2 MG/ML SYR ONE ×3 (17:43→20:04)
[2020-10-21 17:56] LABS: ALT/SGPT 15 U/L (12-78); AST/SGOT 21 U/L (15-37); Albumin 3.9 g/dL (3.4-5.0); Alkaline Phosphatase 67 U/L (45-117); BUN Blood Urea Nitrogen 29 mg/dL (7-18); Bicarbonate 34 mmol/L (21-32); Bilirubin Direct 0.1 mg/dL (0-0.2); Bilirubin Total 0.4 mg/dL (0.2-1.0); Glucose Level 112 mg/dL (74-106); Magnesium 2.4 mg/dL (1.8-2.4); NT PRO-BNP 322 pg/mL (<450); Sodium Level 135 mmol/L (136-145); Troponin (Emerg Dept Use Only) < 0.02 ng/mL (0.0-0.045)
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
[2020-10-21 21:09] LABS: Urine Bacteria <20 /HPF (NONE SEEN); Urine RBC NONE SEEN /HPF (NONE SEEN)
[2020-10-21] MEDS ORDERED: HYDROCODONE/APAP 7.5/325 MG TAB ONE (21:30)
[2020-10-21 22:22] VITALS: O2SAT 97
[2020-10-21 22:24] VITALS: BP 141/80; TEMP 98
== END 2020-10-21 22:12 | disposition home or self-care (01) ==
LOC: ER 15:05
DX: S22.20XA Unspecified fracture of sternum, initial encounter for closed fracture (principal); V57.5XXA Driver of pick-up truck or van injured in collision with fixed or stationary object in traffic accident, initial encounter; J44.9 Chronic obstructive pulmonary disease, unspecified; F17.210 Nicotine dependence, cigarettes, uncomplicated
CPT/HCPCS: 96365; 93005; 85025; 80048; 36415; 83735; 85610; 80076; 81015; 84484; 83880; 71250; 74176; 71045; 96375; 99285; J2270 ×3; J7050